=== PATIENT | female | born 1945 | race Caucasian/White ===

== ENCOUNTER 2017-06-12 14:22 | Emergency (ER) | payer MEDICARE, OTHER ==
--- NOTE | 2017-06-12 16:18 | RAD ---
LEFT RIBS 3 VIEWS CHEST 1 VIEW: Date: 06/12/17 HISTORY: Left chest wall pain. FINDINGS: No displaced rib fracture or pneumothorax are apparent. Cardiac silhouette and pulmonary vasculature are unremarkable. Mediastinum is midline with aortic calcification. There is no confluent air space consolidation or evidence of pneumothorax. IMPRESSION: 1. No active cardiopulmonary abnormalities are demonstrated. 2. Atherosclerosis. POS: [facility]
== END 2017-06-12 17:41 | disposition home or self-care (01) ==
LOC: ERS 14:22
DX: R07.81 Pleurodynia (principal); G30.9 Alzheimer's disease, unspecified; F02.80 Dementia in other diseases classified elsewhere, unspecified severity, without behavioral disturbance, psychotic disturbance, mood disturbance, and anxiety; I10 Essential (primary) hypertension; F32.9 Major depressive disorder, single episode, unspecified; Z79.899 Other long term (current) drug therapy
CPT/HCPCS: 93005

== ENCOUNTER 2018-01-16 19:10 | Inpatient (IN) | payer MEDICARE, OTHER ==
[2018-01-16 19:49] LABS: #Basophils 0.1 thou/uL (0.0-0.2); #Eosinphils 0.2 thou/uL (0.0-0.7); #Lymphocytes 1.4 thou/uL (1.20-3.40); #Monocytes 0.5 thou/uL (0.11-0.59); #Neutrophils 2.7 thou/uL (1.40-6.50); %Eosinophils 3.5 % (0.0-10.0); %Lymphocytes 29.3 % (21.0-51.0); %Monocytes 10.8 % (0.0-10.0); %Neutrophils 55.4 % (42.0-75.0); Hemoglobin 10.3 g/dL (12.0-16.0); Mean Corpuscular HGB CONC 33.9 g/dL (32.0-36.0); Mean Corpuscular Hemoglobin 30.1 pg (27.0-31.0); Mean Corpuscular Volume 88.8 fl (81.0-99.0); Mean Platelet Volume 6.6 fL (7.4-10.4); Platelet Count 167 thou/uL (130-400); RBC Distribution Width 12.3 % (11.5-14.5); Red Blood Cell (RBC) Count 3.43 mill/uL (4.20-5.40); White Blood Cell (WBC) Count 4.9 thou/uL (4.8-10.8)
[2018-01-16 20:02] LABS: ALT (SGPT) 8 U/L (8-55); AST (SGOT) 12 U/L (5-34); Albumin 3.3 g/dL (3.4-4.8); Alkaline Phosphatase 35 U/L (40-150); Anion Gap 11 mmol/L (10-20); BUN (Urea Nitrogen) 32 mg/dL (9.8-20.1); Bilirubin, Total 0.2 mg/dL (0.2-1.2); CK (CPK) 29 U/L (29-168); Calc. Creatinine Clearance 0 mL/min (70-130); Calcium 8.2 mg/dL (7.8-10.44); Carbon Dioxide 22 mmol/L (23-31); Chloride 110 mmol/L (98-107); Estimated GFR-MDRD 55; Glucose 101 mg/dL (83-110); Potassium 4.4 mmol/L (3.5-5.1); Protein, Total 5.3 g/dL (6.0-8.3); Sodium 139 mmol/L (136-145)
[2018-01-16 20:12] LABS: CKMB 0.5 ng/mL (0-6.6); Troponin I Less than 0.010 ng/mL (< 0.028)
--- NOTE | 2018-01-16 20:27 | RAD ---
AP VIEW OF THE CHEST: 01/16/18 INDICATION: Found slumped in chair for a few minutes while eating and lethargic and drowsy. COMPARISON: Comparisons are made with prior left rib series with chest radiograph dated 06/12/17. FINDINGS: The lungs are clear. No pleural effusion or pneumothorax is evident. Chronic osseous changes appear s imilar to the comparison. IMPRESSION: No acute cardiopulmonary abnormalities. POS: [facility]
[2018-01-16 20:36] LABS: Bilirubin Small (Negative); Blood, Urine Negative (Negative); Clarity CLEAR (Clear); Glucose, Urine (Dipstick) Negative (Negative); Leukocyte Negative (Negative); Nitrite Negative (Negative); Protein, Urine (Dipstick) Negative (Neg-Trace); Specific Gravity, Urine 1.027 (1.002-1.036)
--- NOTE | 2018-01-16 20:48 | CT ---
CT OF THE BRAIN WITHOUT CONTRAST: 01/16/18 INDICATION: Syncopal episode. COMPARISON: MRI of the brain dated 01/24/14. FINDINGS: Generalized cerebral and cerebellar atrophy is stable. no acute infarct, hemorrhage or hydrocephalus is present. There is a small air fluid level within the right major sphenoid air cell. Mastoid air cells are clear. IMPRESSION: 1. Air fluid levels in the right major sphenoid air cell may reflect mild sphenoid sinusitis. 2. No acute intracranial abnormality. POS: [facility]
[2018-01-16] MEDS ORDERED: Magnesium Sulfate 2 GM/100 ML BAG ONE (21:15)
[2018-01-16] MEDS ORDERED: Norepinephrine 8 MG/0.9% NS 250 ML ONE (22:46)
--- NOTE | 2018-01-16 23:02 | RAD ---
AP VIEW OF THE CHEST: 01/16/18 INDICATION: Central line placement. COMPARISON: Prior exam dated 01/16/18 at 7:33 p.m. IMPRESSION: There is a right IJ central venous catheter projecting in the region of the right atrium. Remainder o f the examination is unchanged. No pneumothorax is evident. POS: [facility]
[2018-01-17] MEDS: Sodium Chloride 0.9% 1,000 ML IV SCH ×4 (02:38→22:04)
[2018-01-17 02:45] VITALS: BMI 27.6
[2018-01-17] MEDS ORDERED: Prevnar 13-Val Conj/PF 0.5 ML SYRINGE IM ONE ×2 (03:45→09:00)
[2018-01-17] MEDS ORDERED: Divalproex Sodium DR 500 MG TAB PO SCH (11:30)
--- NOTE | 2018-01-17 11:58 | ULT ---
CAROTID ULTRASOUND: HISTORY: Syncope. COMPARISON: None. TECHNIQUE: Delgadillo scale, color flow, Doppler imaging, and spectral waveform analysis is performed. FINDINGS: The right carotid cannot be assessed due to the presence of an IJ catheter. Left carotid: Atherosclerosis involving the left carotid bifurcation of proximal internal carotid artery. Peak sys tolic velocity of the common carotid artery is 62 cm/s. Peak systolic velocity of the internal carot id is 69 cm/s. Systolic ICA to CCA ratio is 1.1. Antegrade flow in the left vertebral artery. IMPRESSION: No evidence of hemodynamically significant stenosis in the left carotid artery. Nonvisualization of the right carotid artery due to the presence of a right internal jugular central venous catheter. POS: [facility]
[2018-01-17 19:21] LABS: Troponin I Less than 0.010 ng/mL (< 0.028)
[2018-01-17] MEDS: Donepezil HCl 10 MG TAB PO SCH (21:09)
[2018-01-17] MEDS: Divalproex Sodium DR 500 MG TAB PO SCH (21:09)
--- NOTE | 2018-01-17 21:49 | HP ---
DATE OF ADMISSION: 01/16/2018 CHIEF COMPLAINT: Syncopal episode. HISTORY OF PRESENT ILLNESS: Ms. Ashby is a 72-year-old female with past history of dementi a and hypertension, who was found by longterm staff, passing out while eating dinner. The patien t notes that she does not remember anything. She has severe dementia. According to longterm sta ff, the patient passed out and became hypotensive at that time. She passed out for about 5-10 minute s, but the patient was still hypotensive and tachycardic. The EMS was called. EMS found the patient hypotensive and started on IV fluids. In the ER, the patient was still hypotensive, received IV flu id boluses 2 more liters and they felt the patient was not improving, so she was given Levophed for a few minutes then stopped and the blood pressure markedly improved after that. The patient did not h ave any evidence of infection, but she had evidence of elevated prolactin. She was suspected to have seizure episode, so she is being admitted for further evaluation and management. PAST MEDICAL HISTORY: 1. Dementia, severe. 2. Hypertension. 3. Urinary incontinence. 4. Bipolar disorder. 5. Unsteady gait. 6. Mood disorder. PAST SURGICAL HISTORY: Nothing significant. CURRENT MEDICATIONS: The patient is on Depakote 500 b.i.d., Aricept 10 mg daily, lisinopril 10 mg da jamey, Namenda 28 mg daily, oxybutynin chloride 10 mg daily, Seroquel 300 mg at bedtime, sertraline 100 mg at bedtime. ALLERGIES: No known drug allergies. FAMILY HISTORY: Nothing contributory. SOCIAL HISTORY: The patient is a resident of [facility]. No history of smoking. No hist ory of alcohol intake. REVIEW OF SYSTEMS: Cardiovascular: No chest pain. No shortness of breath. Respiratory: No fever or cough. Gastrointestinal: No nausea or vomiting. No abdominal pain. Genitourinary: No dysuria. Central nervous system: No headache, no dizziness. PHYSICAL EXAMINATION: GENERAL: The patient is alert, awake, not well oriented. VITAL SIGNS: Temperature 98, pulse 73, respirations 20, blood pressure 105/70. HEENT: Head is normocephalic, atraumatic. Pupils are equal and reactive to light. Nasopharynx is p ian and dry. Hard and soft palate, no lesions seen. SKIN: Skin turgor decreased. NECK: Supple. No JVD. LUNGS: Bilateral air entry with no rales, no rhonchi. CARDIAC: S1, S2, regular. ABDOMEN: Soft, no distention, no tenderness. Normal bowel sounds present. RECTAL: Deferred. CENTRAL NERVOUS SYSTEM: The patient is alert, awake, oriented x2. Motor system power 5/5 in all ext remities. Deep tendon reflexes 2+ bilaterally. Plantar downgoing. Sensory intact. LABORATORY AND X-RAY FINDINGS: CBC shows WBC 4.9, hemoglobin 10, hematocrit 30, platelets 167. Inez bolic panel: Sodium 139, potassium 4.4, chloride 110, CO2 of 22, BUN 32, creatinine 0.9, glucose 101 . CK-MB 0.5, troponin I less than 0.010. Prolactin level 73. Urinalysis negative. Valproic acid l evel 55. Chest x-ray, negative. CT of the brain, unremarkable. EKG shows sinus bradycardia with a heart rate of 54. No acute ST-T wave changes seen. ASSESSMENT: 1. Syncopal episode, rule out myocardial infarction, rule out cardiac arrhythmia. 2. Rule out seizure episode. 3. Hypotension. 4. Severe dementia. 5. Bipolar disorder. 6. Urinary incontinence. PLAN: 1. Vital signs q.4 hours. 2. Activity: As tolerated. 3. Allergies: No known drug allergies. 4. IV fluids: Normal saline at 80 mL per hour. 5. Continue on longterm medications. 6. Hold lisinopril. 7. Cultures. 8. Troponin I q.8 hours x2. 9. Carotid Doppler study. 10. Echocardiogram. 11. Neurology consult. 12. MRI of the brain.
[2018-01-17 21:59] LABS: Troponin I Less than 0.010 ng/mL (< 0.028)
--- NOTE | 2018-01-17 22:51 | CON ---
DATE OF CONSULTATION: 01/18/2018 REASON FOR CONSULTATION: Syncope. HISTORY OF PRESENT ILLNESS: Ms. Ashby is a 72-year-old female who has been concerned for e valuation of altered mental status, evaluation of syncope. History is obtained from patient's medica l chart as patient is unable to provide and there are no family members present at bedside. Apparent ly, patient is a shelter resident for her underlying psychiatrist condition as well as dementia. She was sitting down at the dinner table on yesterday and suddenly had a syncopal event during this time. She did not have any convulsions. There was no tongue biting, no loss of bladder control not ed. This episode lasted less than 1 minute without any postictal confusion. She was brought to the emergency room due to this episode. She has no prior history of seizure disorder. She currently den ies any headache, chest pain, palpitation, nausea, vomiting, abdominal pain. She has been on Depakot e for her bipolar disorder. PAST MEDICAL HISTORY: Significant for bipolar disorder, Alzheimer's disease, protein-calorie malnutr ition, hypertension. PAST SURGICAL HISTORY: Not significant. SOCIAL HISTORY: She does not smoke cigarettes, drink alcohol, or use of illicit drugs. FAMILY HISTORY: Noncontributory. CURRENT MEDICATIONS: Please review MAR. ALLERGIES: No known drug allergies. REVIEW OF SYSTEMS: As mentioned in the HPI, otherwise negative. PHYSICAL EXAMINATION: VITAL SIGNS: Blood pressure 138/93, pulse of 69, temperature of 97.8, respirations of 16, O2 sats of 99% on room air. GENERAL: Well-developed, well-nourished female in no apparent distress. RESPIRATORY: Jeanette r to auscultation bilaterally. CARDIOVASCULAR: Regular rate and rhythm. NEUROLOGIC: Mental status: Patient is awake, alert, and oriented to person only. Speech and langua ge: Fluent speech. Cranial nerves: Pupils are 3 mm and reactive. Visual guthrie are intact. Extra ocular muscles are intact. No nystagmus is noted. Face is symmetric. Tongue and uvula are midline. Motor exam showed normal tone and bulk with 5/5 strength in both upper and lower extremities. Senso ry: Sensation is intact and symmetric. Deep tendon reflexes: 2+ reflexes in both upper and lower e xtremities. Babinski: Plantar responses flexion bilaterally. Coordination intact to heimek-eirc-th nger and finger tapping bilaterally. LABORATORY DATA: Reviewed, which included CBC, CMP, urinalysis. Valproic acid level, which is signi ficant for hemoglobin of 10.3, hematocrit of 30.4. BUN of 32 and valproic acid level of 55, otherwis e unremarkable. IMAGING STUDIES: CT head without contrast was reviewed, which showed no acute intracranial abnormali ty. IMPRESSION: Syncope. Ms. Ashby is a pleasant 72-year-old female who presented with syncop al episode. Based on the description of the spell, this is less likely to be a seizure-related event . At this time, I would recommend obtaining MRI brain with and without contrast and EEG. Since the MRI machine is down, if she was staying in the hospital until a month ago, we will obtain MRI brain a nd EEG on Friday, otherwise, this can be done as an outpatient. She is already taking Depakote for h er mood disorder which will actually help with her seizures and thus I would not recommend starting o n any different antiepileptic medication at this time. Continue supportive care. Thank you for consultation.
[2018-01-18 04:57] LABS: #Eosinphils 0.2 thou/uL (0.0-0.7); #Lymphocytes 1.6 thou/uL (1.20-3.40); #Monocytes 0.4 thou/uL (0.11-0.59); #Neutrophils 2.4 thou/uL (1.40-6.50); %Basophils 0.6 % (0.0-1.0); %Eosinophils 5.2 % (0.0-10.0); %Lymphocytes 33.9 % (21.0-51.0); %Monocytes 8.2 % (0.0-10.0); Hemoglobin 9.9 g/dL (12.0-16.0); Mean Corpuscular HGB CONC 33.7 g/dL (32.0-36.0); Mean Corpuscular Hemoglobin 29.9 pg (27.0-31.0); Mean Corpuscular Volume 88.9 fl (81.0-99.0); Mean Platelet Volume 6.6 fL (7.4-10.4); Platelet Count 150 thou/uL (130-400); RBC Distribution Width 12.3 % (11.5-14.5); Red Blood Cell (RBC) Count 3.32 mill/uL (4.20-5.40); White Blood Cell (WBC) Count 4.7 thou/uL (4.8-10.8)
[2018-01-18 05:12] LABS: Anion Gap 7 mmol/L (10-20); BUN (Urea Nitrogen) 17 mg/dL (9.8-20.1); Calc. Creatinine Clearance 85 mL/min (70-130); Calcium 8.2 mg/dL (7.8-10.44); Carbon Dioxide 23 mmol/L (23-31); Chloride 113 mmol/L (98-107); Estimated GFR-MDRD 71; Glucose 82 mg/dL (83-110); Sodium 139 mmol/L (136-145)
[2018-01-18] MEDS: Divalproex Sodium DR 500 MG TAB PO SCH ×2 (09:26→20:31)
[2018-01-18] MEDS: Sodium Chloride 0.9% 1,000 ML IV SCH (10:48)
--- NOTE | 2018-01-18 14:17 | MRI ---
BRAIN MRI WITH AND WITHOUT CONTRAST: HISTORY: New-onset seizure. Confusion. COMPARISON: 01/24/14. TECHNIQUE: A brain MRI is performed with and without intravenous Gadolinium administration. Multisequential, mu ltiplanar imaging is performed. FINDINGS: Limited evaluation due to motion degradation. Age-appropriate atrophy. Cortical stack-white matter differentiation is preserved. Ventricles and sulci are patent and symmetric. No evidence of hydrocephalus. Symmetric signal intensity of the hippocampi. Chronic small-vessel ischemic changes of the white mat ter are noted. Calvarium has a normal marrow signal intensity. Midline brain parenchymal structures are unremarkabl e. No pathologic enhancement of the brain parenchyma. Central arterial flow voids are maintained. Absent restricted diffusion. No significant opacificati on of the sinuses or mastoid air cells. IMPRESSION: 1. Age-appropriate atrophy. 2. No restricted diffusion. No acute infarct. 3. No pathologic enhancement of the brain parenchyma. POS: [facility]
[2018-01-18] MEDS: Donepezil HCl 10 MG TAB PO SCH (20:30)
[2018-01-19] MEDS: Sodium Chloride 0.9% 1,000 ML IV SCH (05:50)
[2018-01-19 10:58] LABS: #Eosinphils 0.2 thou/uL (0.0-0.7); #Monocytes 0.5 thou/uL (0.11-0.59); #Neutrophils 3.6 thou/uL (1.40-6.50); %Basophils 0.8 % (0.0-1.0); %Eosinophils 3.4 % (0.0-10.0); %Lymphocytes 18.9 % (21.0-51.0); %Monocytes 9.2 % (0.0-10.0); %Neutrophils 67.6 % (42.0-75.0); Hemoglobin 10.9 g/dL (12.0-16.0); Mean Corpuscular HGB CONC 33.7 g/dL (32.0-36.0); Mean Corpuscular Hemoglobin 29.9 pg (27.0-31.0); Mean Corpuscular Volume 88.7 fl (81.0-99.0); Mean Platelet Volume 6.3 fL (7.4-10.4); Platelet Count 172 thou/uL (130-400); RBC Distribution Width 12.2 % (11.5-14.5); Red Blood Cell (RBC) Count 3.64 mill/uL (4.20-5.40); White Blood Cell (WBC) Count 5.3 thou/uL (4.8-10.8)
[2018-01-19] MEDS: Divalproex Sodium DR 500 MG TAB PO SCH ×2 (11:12→21:40)
[2018-01-19 11:23] LABS: Anion Gap 10 mmol/L (10-20); BUN (Urea Nitrogen) 17 mg/dL (9.8-20.1); Calc. Creatinine Clearance 80 mL/min (70-130); Calcium 8.7 mg/dL (7.8-10.44); Carbon Dioxide 26 mmol/L (23-31); Chloride 109 mmol/L (98-107); Estimated GFR-MDRD 68; Glucose 87 mg/dL (83-110); Potassium 4.5 mmol/L (3.5-5.1); Sodium 140 mmol/L (136-145)
--- NOTE | 2018-01-19 12:01 | ULT ---
BILATERAL CAROTID DUPLEX ULTRASOUND: DATE: 01/19/18 HISTORY: Syncope. TECHNIQUE: Delgadillo scale ultrasound with color flow and spectral Doppler imaging of the extracranial carotid artery systems performed bilaterally. FINDINGS: There is plaque formation on either side. The peak systolic velocity in the right ICA measures 68 cm/second with an end-diastolic velocity of 1 4 cm/second and a systolic ratio of 0.94. The peak systolic velocity in the left ICA measures 81 cm/second with an end-diastolic velocity of 20 cm/second and a systolic ratio of 0.76. Flow in both vertebral arteries remains antegrade. IMPRESSION: No evidence of hemodynamically significant stenosis. POS: [facility]
[2018-01-19 16:31] LABS: Iron 38 ug/dL (50-170); Iron Binding Capacity, Total 233 mcg/dL (265-497)
[2018-01-19] MEDS: Donepezil HCl 10 MG TAB PO SCH (21:40)
[2018-01-20] MEDS ORDERED: Lisinopril 5 MG TAB PO SCH (09:00)
[2018-01-20 09:03] VITALS: TEMP 97.7
[2018-01-20] MEDS: Divalproex Sodium DR 500 MG TAB PO SCH (09:33)
[2018-01-20 12:48] VITALS: BP 112/65
--- NOTE | 2018-01-21 13:16 | DIS ---
DATE OF ADMISSION: 01/17/2018 DATE OF DISCHARGE: 01/20/2018 ADMITTING DIAGNOSES: 1. Syncopal episode, rule out myocardial infarction, rule out cardiac arrhythmia. 2. Rule out seizure episode. 3. Hypotension. 4. Severe dementia. 5 Bipolar disorder. 6. Urinary incontinence. FINAL DIAGNOSES: 1. Syncopal episode, no evidence of acute myocardial infarction, no evidence of cardiac arrhythmia. 2. No evidence of seizure disorder. 3. Hypotension, resolved. 4. Severe dementia. 5. Bipolar disorder. 6. Urinary incontinence. BRIEF SUMMARY OF HOSPITAL COURSE: Ms. Ashby is a 72-year-old female admitted because of hypotension and syncopal episode. The patient passed out for about 5-10 minutes and she was tachycardic also. It was not clear whether she had any seizure episode. The patient was admitted to rule out cardiac arrhythmia. The patient was started on cardiac monitoring, though there was no evidence of cardiac arrhythmia. Carotid Doppler study was done and it revealed no evidence of any hemodynamically significant stenosis. Echocardiogram was done, showed normal LV ejection fraction of 60%. She also had an MRI of the brain done, which was negative. Consultation with Neurology. The patient was seen by Dr. Brasher. The patient had a syncopal episode, but did not show any evidence of seizures. MRI of brain was done, it was negative. EEG was also requested and it was reported as negative. The patient did not have anymore episodes of syncope. Her hypotension improved. So, in view of improvement, the patient was discharged. At the time of discharge, she was stable. PHYSICAL EXAMINATION: VITAL SIGNS: Stable. LUNGS: Clear. ABDOMEN: Soft, nontender. Bowel sounds present. DISCHARGE MEDICATIONS: Include Aricept 10 mg daily, Namenda XR 28 mg daily, sertraline 100 mg daily, Seroquel 300 mg daily, oxybutynin chloride 10 mg daily , Depakote 500 b.i.d., lisinopril 5 mg daily. FOLLOWUP: The patient will be followed up at sn[facility]. [facility]
--- NOTE | 2018-01-24 16:33 | EKG ---
Test Reason : SYNCOPE Blood Pressure : / mmHG Vent. Rate : 054 BPM Atrial Rate : 054 BPM P-R Int : 154 ms QRS Dur : 094 ms QT Int : 518 ms P-R-T Axes : 069 017 033 degrees QTc Int : 491 ms Sinus bradycardia Prolonged QT Abnormal ECG Confirmed by YAKOV CONNOLLY ([id number]), electronic news gathering editor MAHAD TAFOYA ([id number]) on 01/24/2018 4:33:15 PM Referred By: ALICIA CORBETT Confirmed By:YAKOV CONNOLLY
== END 2018-01-20 14:26 | DRG 312 ==
LOC: ERS 19:10 → 2NO 01-17 00:04
PROVIDERS: ADMIT Internal Medicine; ATTEND Internal Medicine
DX: R55 Syncope and collapse (principal); I10 Essential (primary) hypertension; F31.9 Bipolar disorder, unspecified; I95.9 Hypotension, unspecified; R32 Unspecified urinary incontinence; G30.9 Alzheimer's disease, unspecified; F02.80 Dementia in other diseases classified elsewhere, unspecified severity, without behavioral disturbance, psychotic disturbance, mood disturbance, and anxiety; Z79.899 Other long term (current) drug therapy
CPT/HCPCS: 36415; 36556; 51702; 70450; 70553; 71045; 80048; 80053; 80164; 81003; 82274; 82553; 82728; 83540; 83550; 83605; 84146; 84484; 85025; 87040; 87086; 90471; 90670; 93005; 93306; 93880; 94760; 95816; 95819; 96365; 96367; A4216; A4353; G0009; J3475

== ENCOUNTER 2018-02-13 19:17 | Emergency (ER) | payer MEDICARE | END 2018-02-13 21:55 | disposition home or self-care (01) | LOC: ERS 19:17 | DX: T76.21XA Adult sexual abuse, suspected, initial encounter (principal); G30.9 Alzheimer's disease, unspecified; F02.80 Dementia in other diseases classified elsewhere, unspecified severity, without behavioral disturbance, psychotic disturbance, mood disturbance, and anxiety; I10 Essential (primary) hypertension; F39 Unspecified mood [affective] disorder; F32.9 Major depressive disorder, single episode, unspecified; Z79.899 Other long term (current) drug therapy | CPT/HCPCS: 99284 ==

== ENCOUNTER 2018-05-01 23:01 | Inpatient (IN) | payer MEDICARE ==
[2018-05-02 00:12] LABS: #Eosinphils 0.3 thou/uL (0.0-0.7); #Lymphocytes 1.2 thou/uL (1.20-3.40); #Monocytes 0.6 thou/uL (0.11-0.59); #Neutrophils 5.2 thou/uL (1.40-6.50); %Basophils 0.7 % (0.0-1.0); %Eosinophils 3.6 % (0.0-10.0); %Lymphocytes 16.9 % (21.0-51.0); %Monocytes 8.1 % (0.0-10.0); %Neutrophils 70.7 % (42.0-75.0); Hemoglobin 10.7 g/dL (12.0-16.0); Mean Corpuscular HGB CONC 34.2 g/dL (32.0-36.0); Mean Corpuscular Hemoglobin 30.5 pg (27.0-31.0); Mean Corpuscular Volume 89.1 fL (78.0-98.0); Mean Platelet Volume 6.8 fL (7.4-10.4); Platelet Count 151 thou/uL (130-400); RBC Distribution Width 12.7 % (11.5-14.5); Red Blood Cell (RBC) Count 3.51 mill/uL (4.20-5.40); White Blood Cell (WBC) Count 7.3 thou/uL (4.8-10.8)
[2018-05-02 00:31] LABS: ALT (SGPT) Less than 7 U/L (8-55); AST (SGOT) 9 U/L (5-34); Albumin 3.4 g/dL (3.4-4.8); Alkaline Phosphatase 38 U/L (40-150); Anion Gap 11 mmol/L (10-20); BUN (Urea Nitrogen) 14 mg/dL (9.8-20.1); Bilirubin, Total 0.3 mg/dL (0.2-1.2); Calc. Creatinine Clearance 0 mL/min (70-130); Calcium 8.4 mg/dL (7.8-10.44); Carbon Dioxide 23 mmol/L (23-31); Chloride 112 mmol/L (98-107); Estimated GFR-MDRD 67; Globulin 1.9 g/dL (2.4-3.5); Glucose 109 mg/dL (83-110); Magnesium 1.8 mg/dL (1.6-2.6); Phosphorus 3.1 mg/dL (2.3-4.7); Potassium 3.6 mmol/L (3.5-5.1); Protein, Total 5.3 g/dL (6.0-8.3); Sodium 142 mmol/L (136-145)
[2018-05-02 00:35] LABS: CKMB 0.6 ng/mL (0-6.6); Troponin I Less than 0.010 ng/mL (< 0.028)
[2018-05-02 00:43] LABS: Bilirubin Negative (Negative); Blood, Urine Negative (Negative); Clarity CLOUDY (Clear); Glucose, Urine (Dipstick) Negative (Negative); Leukocyte Moderate (Negative); Nitrite Positive (Negative); Protein, Urine (Dipstick) 30 mg/dL (Neg-Trace); Specific Gravity, Urine 1.016 (1.002-1.036); pH, Urine 6.5 (5.0-9.0)
[2018-05-02 00:46] LABS: Bacteria/HPF 4+ HPF (None Seen); Squamous Epithelial 0-3 HPF (0-3); WBC/HPF 21-50 HPF (0-3)
[2018-05-02 01:13] LABS: Pathc Cast-AUWi Flag 3.48 (0-2.49)
[2018-05-02 01:24] LABS: RBC/HPF 0-3 HPF (0-3)
[2018-05-02] MEDS ORDERED: Piperacillin/Tazobactam 4.5 GM VIAL ONE (01:45)
[2018-05-02] MEDS: Sodium Chloride 0.9% 1,000 ML IV SCH ×4 (03:10→15:04)
[2018-05-02 04:33] LABS: Troponin I Less than 0.010 ng/mL (< 0.028)
--- NOTE | 2018-05-02 07:30 | CT ---
NONCONTRAST CT HEAD: DATE: 05/02/18. HISTORY: Syncope and collapse. COMPARISON: 01/16/18. FINDINGS: There is no evidence of an acute infarction, hemorrhage, mass effect, or midline shift. Cerebral and cerebellar volume loss is again present. The ventricular system is normal in size, shape, and posit ion for the degree of sulcal atrophy. There is minimal mucosal thickening in the right maxillary antrum with a small air fluid level in the right sphenoid sinus. The mastoid air cells are clear. Calvarial structures are intact without daniel dence of a calvarial fracture. IMPRESSION: 1. No acute intracranial abnormality is demonstrated. 2. Cerebral volume loss. 3. Air fluid level in the right sphenoid sinus which can be seen with acute sinusitis. Minimal muco kylah thickening is seen in the right maxillary antrum. POS: [facility]
--- NOTE | 2018-05-02 07:33 | CT ---
NONCONTRAST CT CERVICAL SPINE: DATE: 05/02/18. HISTORY: Syncope with collapse. TECHNIQUE: Contiguous axial CT images are obtained through the cervical spine from the skull base to the T1-2 le aamir. Sagittal and coronal reformatted images are provided. FINDINGS: There are prominent degenerative changes involving the lateral masses of C1 and C2 much greater on th e left. Multilevel facet hypertrophic changes are noted. There is at least partial fusion of the C4 and C5 vertebral bodies. The vertebral body heights are within normal limits and no fracture or subluxation is seen. There is severe right-sided neural foraminal narrowing at the C4-5 level related to prominent facet h ypertrophic changes and uncinate process hypertrophy. There is also a suggestion of severe bilateral neural foraminal narrowing at the C5-6 level. The prevertebral soft tissues are within normal limits. Vascular calcifications are seen in the carotid arteries. Limited visualized lung apices are clear. IMPRESSION: Multilevel degenerative changes in the cervical spine, but no fracture or subluxation is identified. POS: [facility]
[2018-05-02 08:33] LABS: Troponin I Less than 0.010 ng/mL (< 0.028)
--- NOTE | 2018-05-02 09:54 | RAD ---
PORTABLE CHEST: HISTORY: Syncope. FINDINGS: Lung guthrie are clear. Heart and mediastinum unremarkable. IMPRESSION: No acute process. POS: [facility]
[2018-05-02] MEDS: cefTRIAXone\\ROCEPHIN 2 GM in Sodium Chloride 0.9% 100 ML IVPB SCH (10:13)
[2018-05-02] MEDS: Divalproex Sodium DR 500 MG TAB PO SCH ×2 (10:14→20:45)
[2018-05-02] MEDS: Oxybutynin ER 5 MG TAB PO SCH (10:15)
--- NOTE | 2018-05-02 19:49 | HP ---
DATE OF ADMISSION: 05/02/2018 CHIEF COMPLAINT: Syncopal episode, hypotension. HISTORY OF PRESENT ILLNESS: Ms. Ashby is a 73-year-old female with past medical history of dementia, bipolar disorder, who was brought in because she passed out in the bathroom. The patient did not complain of any chest pain , no fever, no nausea or vomiting. She has been doing well until that time. The patient was found to be hypotensive as well. EMS was called. EMS found the patient to be hypotensive, brought to the emergency room after she was started on fluids. In the ER, the patient was still hypotensive with systolic blood pressure 87 and diastolic was 51. The patient received IV fluid bolus 1 liter. As she was found to have urinary tract infection, she was given Cipro, Zosyn, and vancomycin and her blood pressure improved with IV fluids. She is admitted for further evaluation and management. The patient was also found to be hypothermic, temperature 94.4. In the ER, she was given warm normal saline with temperature improved after that. PAST MEDICAL HISTORY: 1. Dementia. 2. Bipolar disorder. 3. Hypotension. 4. Unsteady gait. 5. Mood disorder. 6. Urinary incontinence. PAST SURGICAL HISTORY: Nothing significant. CURRENT MEDICATIONS: Patient is on Depakote 500 mg b.i.d., Namenda XR 28 mg daily, oxybutynin chloride 10 mg daily, Seroquel 300 mg daily, Zoloft 100 mg daily, Aricept 10 mg daily. ALLERGIES: No known drug allergies. FAMILY HISTORY: Nothing of interest. SOCIAL HISTORY: Patient is a resident of [facility]. No history of smoking. No history of alcohol. REVIEW OF SYSTEMS: Unable to be obtained. PHYSICAL EXAMINATION: GENERAL: The patient is awake, but not oriented. VITAL SIGNS: Initial blood pressure was 94, now 97; pulse 68, respiratory rate 20, and blood pressure 106/60. HEENT: Head is normocephalic, atraumatic. Pupils equal and reactive to light. Nasopharynx is pale and dry. Hard and soft palate, no lesions seen. SKIN: Turgor is decreased. NECK: Supple. No JVD. LUNGS: Bilateral air entry present, no rales, no rhonchi. CARDIAC: S1 and S2, regular. ABDOMEN: Soft, no distention, no tenderness. No abnormal bowel sounds. RECTAL EXAM: Deferred. NEUROLOGIC: The patient is alert, awake, not oriented. Motor system, power 4/ 5 in all extremities. Deep tendon reflexes 2+ bilaterally. Plantar downgoing. Sensory intact. LABORATORY AND X-RAY FINDINGS: CBC shows WBC 7.3, hemoglobin 10.7, hematocrit 31, and platelets 151. Metabolic panel: Sodium 142, potassium 3.6, chloride 112, CO2 of 23, BUN 14, creatinine 0.9, and glucose 109. CK-MB 0.6, troponin less than 0.010. Urinalysis; wbc's TNTC, bacteria 4+, leukocyte esterase moderate, nitrate positive. Chest x-ray negative. EKG shows normal sinus rhythm, no acute ST-T changes seen. CT of the brain, no acute intracranial abnormality present. Cerebral volume loss seen. CT of the cervical spine showed no fracture or subluxation, showed DJD changes. ASSESSMENT: 1. Urinary tract infection, rule out sepsis. 2. Hypotension. 3. Syncope, blacked out a lot. 4. Cardiac arrhythmia, rule out myocardial infarction. 5. Dementia. 6. Bipolar disorder. 7. Urinary incontinence. 8. Hypothermia. PLAN: 1. Vital signs q.4 hours. 2. Activity: As tolerated. 3. Allergies: NKDA. 4. Diet: Regular. 5. IV fluids normal saline 100 mL per hour. 6. Continue senior living medication. 7. Rocephin 2 grams IV piggyback daily 8. We will follow urine cultures. MTDD
[2018-05-02] MEDS: Donepezil HCl 10 MG TAB PO SCH (20:45)
[2018-05-03] MEDS: Sodium Chloride 0.9% 1,000 ML IV SCH (04:03)
[2018-05-03 04:56] LABS: #Eosinphils 0.3 thou/uL (0.0-0.7); #Lymphocytes 1.2 thou/uL (1.20-3.40); #Monocytes 0.3 thou/uL (0.11-0.59); #Neutrophils 2.2 thou/uL (1.40-6.50); %Basophils 0.7 % (0.0-1.0); %Eosinophils 8.4 % (0.0-10.0); %Lymphocytes 29.6 % (21.0-51.0); %Monocytes 6.3 % (0.0-10.0); Hemoglobin 9.6 g/dL (12.0-16.0); Mean Corpuscular HGB CONC 34.5 g/dL (32.0-36.0); Mean Corpuscular Hemoglobin 30.6 pg (27.0-31.0); Mean Corpuscular Volume 88.9 fL (78.0-98.0); Mean Platelet Volume 6.4 fL (7.4-10.4); Platelet Count 143 thou/uL (130-400); RBC Distribution Width 12.8 % (11.5-14.5); Red Blood Cell (RBC) Count 3.13 mill/uL (4.20-5.40)
[2018-05-03 05:03] LABS: Anion Gap 7 mmol/L (10-20); BUN (Urea Nitrogen) 9 mg/dL (9.8-20.1); Calc. Creatinine Clearance 81 mL/min (70-130); Carbon Dioxide 23 mmol/L (23-31); Chloride 115 mmol/L (98-107); Estimated GFR-MDRD 76; Glucose 88 mg/dL (83-110); Potassium 3.4 mmol/L (3.5-5.1); Sodium 142 mmol/L (136-145)
[2018-05-03] MEDS ORDERED: Prevnar 13-Val Conj/PF 0.5 ML SYRINGE IM ONE (09:00)
[2018-05-03] MEDS: cefTRIAXone\\ROCEPHIN 2 GM in Sodium Chloride 0.9% 100 ML IVPB SCH (09:37)
[2018-05-03] MEDS: Oxybutynin ER 5 MG TAB PO SCH (09:38)
[2018-05-03] MEDS: Divalproex Sodium DR 500 MG TAB PO SCH ×2 (09:38→20:31)
[2018-05-03] MEDS: Dextrose 5 %-0.45 % NaCl 1,000 ML IV SCH (12:31)
[2018-05-03] MEDS: Potassium Chloride 20 MEQ TAB PO SCH ×2 (12:31→16:52)
[2018-05-03] MEDS: Donepezil HCl 10 MG TAB PO SCH (20:31)
[2018-05-04] MEDS: Dextrose 5 %-0.45 % NaCl 1,000 ML IV SCH (04:12)
[2018-05-04] MEDS: cefTRIAXone\\ROCEPHIN 2 GM in Sodium Chloride 0.9% 100 ML IVPB SCH (08:06)
[2018-05-04] MEDS: Oxybutynin ER 5 MG TAB PO SCH (08:07)
[2018-05-04] MEDS: Divalproex Sodium DR 500 MG TAB PO SCH ×2 (09:35→20:35)
[2018-05-04] MEDS: Donepezil HCl 10 MG TAB PO SCH (20:35)
[2018-05-05 05:17] LABS: #Eosinphils 0.4 thou/uL (0.0-0.7); #Lymphocytes 1.3 thou/uL (1.20-3.40); #Monocytes 0.4 thou/uL (0.11-0.59); #Neutrophils 2.6 thou/uL (1.40-6.50); %Basophils 0.8 % (0.0-1.0); %Eosinophils 8.6 % (0.0-10.0); %Lymphocytes 27.2 % (21.0-51.0); %Monocytes 9.2 % (0.0-10.0); %Neutrophils 54.2 % (42.0-75.0); Hemoglobin 10.7 g/dL (12.0-16.0); Mean Corpuscular HGB CONC 34.5 g/dL (32.0-36.0); Mean Corpuscular Hemoglobin 30.1 pg (27.0-31.0); Mean Corpuscular Volume 87.3 fL (78.0-98.0); Mean Platelet Volume 7.5 fL (7.4-10.4); Platelet Count 159 thou/uL (130-400); RBC Distribution Width 12.9 % (11.5-14.5); Red Blood Cell (RBC) Count 3.55 mill/uL (4.20-5.40); White Blood Cell (WBC) Count 4.8 thou/uL (4.8-10.8)
[2018-05-05 05:32] LABS: Anion Gap 14 mmol/L (10-20); BUN (Urea Nitrogen) 7 mg/dL (9.8-20.1); Calc. Creatinine Clearance 77 mL/min (70-130); Calcium 8.8 mg/dL (7.8-10.44); Carbon Dioxide 22 mmol/L (23-31); Chloride 108 mmol/L (98-107); Estimated GFR-MDRD 71; Glucose 86 mg/dL (83-110); Potassium 3.5 mmol/L (3.5-5.1); Sodium 140 mmol/L (136-145)
[2018-05-05] MEDS: Oxybutynin ER 5 MG TAB PO SCH (08:11)
[2018-05-05] MEDS: cefTRIAXone\\ROCEPHIN 2 GM in Sodium Chloride 0.9% 100 ML IVPB SCH (08:12)
[2018-05-05] MEDS: Divalproex Sodium DR 500 MG TAB PO SCH ×2 (08:50→20:16)
[2018-05-05] MEDS: Donepezil HCl 10 MG TAB PO SCH (20:15)
[2018-05-06] MEDS: cefTRIAXone\\ROCEPHIN 2 GM in Sodium Chloride 0.9% 100 ML IVPB SCH (09:05)
[2018-05-06] MEDS: Divalproex Sodium DR 500 MG TAB PO SCH ×2 (09:05→20:07)
[2018-05-06] MEDS: Oxybutynin ER 5 MG TAB PO SCH (09:11)
[2018-05-06] MEDS: Donepezil HCl 10 MG TAB PO SCH (20:07)
[2018-05-07] MEDS: Divalproex Sodium DR 500 MG TAB PO SCH (08:41)
[2018-05-07] MEDS: Oxybutynin ER 5 MG TAB PO SCH (08:43)
--- NOTE | 2018-05-07 13:27 | EKG ---
Test Reason : SYNCOPE Blood Pressure : / mmHG Vent. Rate : 070 BPM Atrial Rate : 070 BPM P-R Int : 144 ms QRS Dur : 082 ms QT Int : 452 ms P-R-T Axes : 055 040 033 degrees QTc Int : 488 ms Normal sinus rhythm Nonspecific T wave abnormality Prolonged QT No STEMI Abnormal ECG Confirmed by ALICIA Vásquez, PASHA ([id number]), make up editor CANDE WADE ([id number]) on 05/07/2018 1:26:39 PM Referred By: Confirmed By:PASHA VARGAS M.D.
[2018-05-07 14:02] VITALS: BP 106/66; TEMP 98.5
--- NOTE | 2018-05-08 15:06 | DIS ---
DATE OF ADMISSION: 05/02/2018 DATE OF DISCHARGE: 05/07/2018 ADMITTING DIAGNOSES: 1. Urinary tract infection, rule out sepsis. 2. Hypotension. 3. Syncope, blacked out. 4. Cardiac arrhythmia, rule out myocardial infarction. 5. Dementia. 6. Bipolar disorder. 7. Urinary incontinence. 8. Hypothermia. FINAL DIAGNOSES: 1. Urinary tract infection, no evidence of sepsis. 2. Hypothermia, corrected. 3. Hypotension, improved. 4. Syncope. No evidence of acute myocardial infarction. 5. Dementia. 6. Bipolar disorder. BRIEF SUMMARY OF HOSPITAL COURSE: Ms. Ashby is a 73-year-old female admitted because of sy ncopal episode and hypotension. The patient was found to have urinary tract infection. A urine cult ure was done and revealed growth of Klebsiella pneumonia secondary to her Levaquin and Rocephin. The patient continued on IV antibiotics and blood culture showed no growth in 5 days. The patient's men tation improved. She became more alert, awake. Her hypotension improved and she is tolerating diet very well. Her Risperdal medication was stopped, because she was very sleepy. After it was stopped, the patient became more alert, awake. In view of improvement, the patient was discharged. At the t vida of discharge, she was stable. Her vital signs were stable. Lungs were clear. Heart sounds regu lar. Abdomen is soft, nontender. Bowel sounds present. DISCHARGE MEDICATIONS: Include Aricept 10 mg daily, Namenda 28 mg daily, sertraline 100 mg at bedtim e, oxybutynin chloride 10 mg daily, Depakote 500 b.i.d., lisinopril 5 mg daily, levofloxacin 750 mirna y for 5 days. FOLLOWUP: The patient will be followed up in 2 weeks.
== END 2018-05-07 13:27 | DRG 689 ==
LOC: ERS 23:01 → IMCU/EMU 05-02 02:19 → T4-A 05-03 15:02
PROVIDERS: ADMIT Internal Medicine; ATTEND Internal Medicine
DX: N39.0 Urinary tract infection, site not specified (principal); G93.49 Other encephalopathy; T68.XXXA Hypothermia, initial encounter; I95.9 Hypotension, unspecified; R55 Syncope and collapse; B96.1 Klebsiella pneumoniae [K. pneumoniae] as the cause of diseases classified elsewhere; Z91.81 History of falling; G30.9 Alzheimer's disease, unspecified; F02.80 Dementia in other diseases classified elsewhere, unspecified severity, without behavioral disturbance, psychotic disturbance, mood disturbance, and anxiety; F32.9 Major depressive disorder, single episode, unspecified; I49.9 Cardiac arrhythmia, unspecified
CPT/HCPCS: 36415; 51701; 70450; 71045; 72125; 80048; 80053; 81003; 81015; 82553; 83605; 83735; 83880; 84100; 84484; 85025; 87040; 87077; 87086; 87186; 93005; 94760; 96361; 96365; 96367; A4216; A4353; J0696; J1956; J2543; J3370; J7050

== ENCOUNTER 2018-05-20 13:52 | Emergency (ER) | payer MEDICARE ==
--- NOTE | 2018-05-20 14:57 | RAD ---
CHEST ONE VIEW: HISTORY: Aspiration. COMPARISON: 05/01/2018 FINDINGS: Slight elongation of the aorta. Atherosclerosis of the aortic knob. Normal cardiac silhouette. The pulmonary vessels and hilum are normal. Chronic changes without consolidation or mass. No pneumoth orax or osseous abnormalities. IMPRESSION: No acute cardiopulmonary process. POS: [facility]
== END 2018-05-20 14:33 | disposition home or self-care (01) ==
LOC: ERS 13:52
DX: R13.10 Dysphagia, unspecified (principal); G30.9 Alzheimer's disease, unspecified; F02.80 Dementia in other diseases classified elsewhere, unspecified severity, without behavioral disturbance, psychotic disturbance, mood disturbance, and anxiety; I10 Essential (primary) hypertension; F31.9 Bipolar disorder, unspecified; Z79.899 Other long term (current) drug therapy
CPT/HCPCS: 71045

== ENCOUNTER 2018-11-25 11:50 | Emergency (ER) | payer MEDICARE, MEDICAID ==
--- NOTE | 2018-11-25 12:24 | CT ---
HEAD CT WITHOUT CONTRAST: Date: 11/25/18 COMPARISON: 05/02/18. HISTORY: [facility] patient, fell from bed. Unwitnessed fall. Post-traumatic pain. Nosebleed. FINDINGS: No parenchymal hemorrhage. No extra-axial hematoma. No midline shift. Basilar cisterns are patent. Ag e-appropriate atrophy. Cortical stack-white matter differentiation preserved. No evidence of hydroceph alus. Adequate aeration of the mastoid air cells and visualized paranasal sinuses. Intact calvarium. There is soft tissue swelling at the level of the nose, along with bilateral nasal bone fractures. Ri ght nasal bone is deviated and displaced. IMPRESSION: 1. Nasal bone fracture. 2. No intracranial post-traumatic sequelae. POS: [facility]
[2018-11-25] MEDS ORDERED: Oxymetazoline HCl 0.05% ( 15 ML ) ONE (12:58)
== END 2018-11-25 15:29 | disposition home or self-care (01) ==
LOC: ERS 11:50
DX: S09.90XA Unspecified injury of head, initial encounter (principal); R04.0 Epistaxis; I10 Essential (primary) hypertension; F39 Unspecified mood [affective] disorder; F03.90 Unspecified dementia, unspecified severity, without behavioral disturbance, psychotic disturbance, mood disturbance, and anxiety; Z79.899 Other long term (current) drug therapy; G30.9 Alzheimer's disease, unspecified; F02.80 Dementia in other diseases classified elsewhere, unspecified severity, without behavioral disturbance, psychotic disturbance, mood disturbance, and anxiety; W19.XXXA Unspecified fall, initial encounter
CPT/HCPCS: 70450

== ENCOUNTER 2020-05-01 18:23 | Inpatient (IN) | payer MEDICARE, MEDICAID, OTHER ==
[~2020-05-01 18:23] MED LIST: Iopamidol-370 76% 500 ML 1 ML ONE
[2020-05-01 19:02] LABS: #Eosinphils 0.2 thou/uL (0.0-0.7); #Lymphocytes 0.5 thou/uL (1.20-3.40); #Monocytes 0.4 thou/uL (0.11-0.59); #Neutrophils 5.9 thou/uL (1.40-6.50); %Basophils 0.2 % (0.0-1.0); %Eosinophils 2.8 % (0.0-10.0); %Lymphocytes 6.8 % (21.0-51.0); %Monocytes 6.1 % (0.0-10.0); %Neutrophils 84.1 % (42.0-75.0); Hemoglobin 11.7 g/dL (12.0-16.0); Mean Corpuscular HGB CONC 33.5 g/dL (32.0-36.0); Mean Corpuscular Hemoglobin 30.8 pg (27.0-31.0); Mean Corpuscular Volume 91.8 fL (78.0-98.0); Mean Platelet Volume 7.9 fL (7.4-10.4); Platelet Count 129 thou/uL (130-400); RBC Distribution Width 11.9 % (11.5-14.5)
[2020-05-01] MEDS ORDERED: cefTRIAXone\\ROCEPHIN 1 GM VIAL ONE (19:06)
--- NOTE | 2020-05-01 19:06 | RAD ---
EXAM: Single view of the chest HISTORY: Hypotension COMPARISON: 05/20/2018 FINDINGS: Single view of the chest shows a normal sized cardiomediastinal silhouette. There is no daniel dence of consolidation, mass, or pleural effusion. Degenerative changes are seen in the spine. IMPRESSION: No evidence of acute cardiopulmonary disease
[2020-05-01 19:24] LABS: ALT (SGPT) Less than 7 U/L (8-55); AST (SGOT) 12 U/L (5-34); Alkaline Phosphatase 46 U/L (40-110); Anion Gap 15 mmol/L (10-20); BUN (Urea Nitrogen) 16 mg/dL (9.8-20.1); Bilirubin, Total 0.6 mg/dL (0.2-1.2); Calc. Creatinine Clearance 0 mL/min (70-130); Calcium 7.8 mg/dL (7.8-10.44); Carbon Dioxide 18 mmol/L (23-31); Chloride 106 mmol/L (98-107); Estimated GFR-MDRD 76; Globulin 2.4 g/dL (2.4-3.5); Glucose 138 mg/dL (83-110); Potassium 3.8 mmol/L (3.5-5.1); Protein, Total 5.4 g/dL (6.0-8.3); Sodium 135 mmol/L (136-145)
[2020-05-01 19:24] LABS: Bacteria/HPF None Seen HPF (None Seen); Bilirubin Negative (Negative); Blood, Urine Negative (Negative); Clarity Clear (Clear); Glucose, Urine (Dipstick) Normal (Negative); Ketone, Urine Negative (Negative); Leukocyte 25 Leu/uL (Negative); Mucous/LPF 1+ LPF (<2+); Nitrite Negative (Negative); Protein, Urine (Dipstick) 10 mg/dL (Neg-Trace); RBC/HPF 0-3 HPF (0-3); Specific Gravity, Urine 1.024 (1.002-1.036); Squamous Epithelial 0-3 HPF (0-3); WBC/HPF 0-3 HPF (0-3)
[2020-05-01] MEDS ORDERED: Norepinephrine 8 MG/0.9% NS 250 ML ONE (19:41)
[2020-05-01] MEDS ORDERED: Vasopressin 20 UNIT, Admixture Fee 1 EACH in Sodium Chloride 0.9% 50 ML IV SCH (20:45)
--- NOTE | 2020-05-01 20:47 | RAD ---
EXAM: Single view of the chest HISTORY: Central line placement COMPARISON: 05/01/2020 at 6:47 PM FINDINGS: Single view of the chest shows a normal sized cardiomediastinal silhouette. A left-sided c entral venous catheter seen with its tip in the superior vena cava. No pneumothorax is seen. There is no evidence of consolidation, mass, or pleural effusion. No acute osseous abnormality. IMPRESSION: Status post central line placement without evidence of complication.
[2020-05-01] MEDS ORDERED: Vancomycin 1.5 GRAM/300 ML BAG 1.5 GM in Premix Bag 1 BAG IVPB SCH (21:00)
[2020-05-01] MEDS ORDERED: Acetaminophen 650 MG Suppository PR PRN (21:13)
[2020-05-01] MEDS ORDERED: Ondansetron PF 4 MG/2 ML Vial IVP PRN (21:13)
[2020-05-01] MEDS ORDERED: Bisacodyl 10 MG SUPP PR PRN (21:13)
[2020-05-01] MEDS ORDERED: Ondansetron ODT 4 MG TAB PO PRN (21:13)
[2020-05-01] MEDS ORDERED: Senokot S 8.6-50 MG TAB PO PRN (21:13)
[2020-05-01] MEDS ORDERED: Acetaminophen 325 MG TAB PO PRN (21:13)
--- NOTE | 2020-05-01 21:13 | PDOC.FPRHP ---
- History of Present Illness Chief Complaint: AMS History of Present Illness: Patient is a 75 year old female with a history of Alzheimer's dementia, HLD, HTN , MDD and manic mood disorder per chart review presents to the ED via EMS from [facility] with reports of decreased mental status. Per the [place], the patient's baseline is A&Ox1 to self but she was A&Ox0 during the day today. Reported fever of 101.9F. The patient was recently diagnosed with a UTI on characterized by UA with + nitrates, large leuk benoit, TNTC WBC, RBC, rare bacteria and budding yeast. She was placed on cipro and diflucan that was stopped on 04/24. Macrobid was then given for 7 days with completion yesterday. EMS reported systolic BP in 80s upon arrival to [place]. NS 800mL and Tylenol was administered en route. Per the patient's son, he has been unable to visit his mother since 07/27 due to flu and COVID restrictions. He says the patient was incoherent during his last conversation with her and notes that he was told by [place] that she keeps to herself and roams the halls. ED Course: In the ED, systolic BP ranged 90s-100s with MAP in low 60s. 2.5L of NS total was administered. WBC 7. Bicarb 18. LA 3.5. Anion Gap 13.5. UA + for uric acid and leuk benoit. CXR showed nothing acute. Central line placed. Ceftriazone, levaquin and vanc administered. Levophed begun with resulting increased in systolic BP to 110s-130s. Patient's mentation improved to speaking one word responses. - Allergies/Adverse Reactions Allergies Allergy/AdvReac Type Severity Reaction Status Date / Time No Known Drug Allergies Allergy Verified 05/01/20 23:19 - Home Medications Medication Instructions Recorded Confirmed Type Divalproex Sodium DR [Depakote] 250 mg PO ASDIR 01/17/18 05/01/20 History Donepezil HCl [Aricept] 10 mg PO HS 01/17/18 05/01/20 History Memantine HCl [Namenda XR] 10 mg PO BID 01/17/18 05/01/20 History Oxybutynin Chloride [Oxybutynin 5 mg PO DAILY 01/17/18 05/01/20 History Chloride ER] Atorvastatin Calcium [Lipitor] 80 mg PO HS 05/01/20 05/01/20 History Divalproex Sodium [Depakote 500 mg PO ASDIR 05/01/20 05/01/20 History Sprinkle] Lisinopril 5 tab PO DAILY 05/01/20 05/01/20 History Loperamide HCl [Imodium A-D] 2 mg PO QID PRN 05/01/20 05/01/20 History - History PMHx: dementia, HLD, HTN, MDD and manic mood disorder per chart review PSHx: Unknown FHx: Unknown Social: Lives at [facility]. Previous use of tobacco products, ETOH and drugs unknown. - Review of Systems ROS unobtainable: due to mental status - Vital signs BP: [116/76] HR: [76] RR: [21] Tmax: [97.6] Pox: [100]% on [RA] Wt: [80.20kg] - Physical Exam Constitutional: NAD -Constitutional: Awake. Alert. HEENT: normocephalic and atraumatic Neck: supple, trachea midline Chest: no lesions Heart: RRR, normal S1/S2 -Heart: 3+ pitting edema to left ankle and foot. No edema to remainder of left lower extremity as well as right lower extremity. Lungs: CTAB, no respiratory distress Abdomen: soft, bowel sounds present, no masses/distention -Musculoskeletal: Left arm difficult to move due to contraction. Minimal movement of RUE, RLE, LLE. -Neurological: A&Ox0. Intermittently answers questions with one word. GCS 13 (spontaneous eye response, inappropriate words, obeys commands). Skin: capillary refill <2 seconds, no jaundice -Heme/Lymphatic: Ecchymosis to right medial knee. FMR H&P: Results - Labs Result Diagrams: 05/02/20 03:07 05/01/20 18:52 Lab results: WBC 7.0 thou/uL (4.8-10.8) 05/01/20 18:52 Hgb 11.7 g/dL (12.0-16.0) L 05/01/20 18:52 Hct 34.9 % (36.0-47.0) L 05/01/20 18:52 MCV 91.8 fL (78.0-98.0) 05/01/20 18:52 Plt Count 129 thou/uL (130-400) L 05/01/20 18:52 Neutrophils % 84.1 % (42.0-75.0) H 05/01/20 18:52 Sodium 135 mmol/L (136-145) L 05/01/20 18:52 Potassium 3.8 mmol/L (3.5-5.1) 05/01/20 18:52 Chloride 106 mmol/L (98-107) 05/01/20 18:52 Carbon Dioxide 18 mmol/L (23-31) L 05/01/20 18:52 BUN 16 mg/dL (9.8-20.1) 05/01/20 18:52 Creatinine 0.74 mg/dL (0.6-1.1) 05/01/20 18:52 Glucose 138 mg/dL (83-110) H 05/01/20 18:52 Lactic Acid 3.5 mmol/L (0.5-2.2) H 05/01/20 18:52 Calcium 7.8 mg/dL (7.8-10.44) 05/01/20 18:52 Total Bilirubin 0.6 mg/dL (0.2-1.2) 05/01/20 18:52 AST 12 U/L (5-34) 05/01/20 18:52 ALT Less than 7 U/L (8-55) L 05/01/20 18:52 Alkaline Phosphatase 46 U/L (40-110) 05/01/20 18:52 Serum Total Protein 5.4 g/dL (6.0-8.3) L 05/01/20 18:52 Albumin 3.0 g/dL (3.4-4.8) L 05/01/20 18:52 Urine Ketones Negative mg/dL (Negative) 05/01/20 19:07 Urine Blood Negative (Negative) 05/01/20 19:07 Urine Nitrite Negative (Negative) 05/01/20 19:07 Ur Leukocyte Esterase 25 Joyce/uL (Negative) A 05/01/20 19:07 Urine RBC 0-3 HPF (0-3) 05/01/20 19:07 Urine WBC 0-3 HPF (0-3) 05/01/20 19:07 Ur Squamous Epith Cells 0-3 HPF (0-3) 05/01/20 19:07 Urine Bacteria None Seen HPF (None Seen) 05/01/20 19:07 - EKG Interpretation EKG: HR 92, NSR - Radiology Interpretation Chest x-ray Status: report reviewed by me Additional comment: No acute cardiopulmonary process CT scan - chest Status: report reviewed by me Additional comment: Tiny right pleural effusion with atelectasis. No acute process noted. CT scan - abdomen Status: report reviewed by me Additional comment: Diverticulosis. HH. Bilateral inguinal hernias. Moderate stool in rectal vault. No acute process noted. FMR H&P: A/P - Plan Shock, possibly cardiogenic vs. adrenal crisis in nature Evidence of shock given hypotension and tachycardia. Patient meets SIRS critera (hypotension, elevated lactate) however does not meet sepsis criteria given lack of infectious source identified or probable. Reported febrile at [place], afebrile since arrival. CXR, CT Brain, CT Chest and CT A/P showed no acute processes. UA showed leuk benoit but negative for bacteria and nitrates. Hypovolemic shock due to decreased PO intake is also a possibility, although less likely given physical exam and lack of reported PO change by by [place]. Causes of shock will be further investigated. MAP currently > 65. -Admit to ICU -Trop with reflex CKMB, BNP, CPK -Cortisol level -Procal level -Morning BMP, CBC -Continue levophed drip and titrate down as tolerated -LR at 120 for maintanence fluids -Continue vanc and levaquin, pending blood and urine culture results -NPO until swallow study completed -Strict I&Os Lactic acidosis 2/2 shock Anion Gap 13.5. Lactic acid 3.5. -Repeat lactic acid -Monitor morning BMP, CBC HTN -Restart home meds once swallow study completed HLD -Restart home meds once swallow study completed Alzheimer's disease Currently A&Ox0, baseline A&Ox1. Per son, patient has been incoherent in recent phone call. -Frequent orientation -Raise blinds during the day -Restart home meds once swallow study completed MDD Manic mood disorder -Restart home meds once swallow study completed PCP: [facility] call Code: Intubate, NO CPR Prophylaxis: Lovenox, Protonix Dispo: admit to ICU for hypotension requiring levophed drip, expected LOS > 48 hours FMR H&P: Upper Level - Plan Date/Time: 05/01/202112 IStella, have evaluated this patient and agree with findings/plan as outlined by internal grinder tender resident. Pertinent changes/additions are listed here. 75 yo F presents from [facility] for altered mental status noted today. Unable to obtain any history from patient. Hypotension systolic 80s in [place] and in ED, given 2.5L then central line place and started on levophed. MAP >65 on exam now. She has been treated for UTI outpatient with cipro and diflucan which was stopped on 04/24 after culture resulted and then switched to macrobid, completed the 7 day course on 04/30. Culture grew ecoli UTI resistant to amp, Levaquin, Cipro. CT brain: diffuse cerebral atrophy, small vessel ischemic changes, no acute change CT chest/ab/pelvis: hiatal hernia, trace R pleural effusion, moderate stool, no acute changes EKG: NSR, no ST changes, inverted T waves V1-3, QTc 469 PE: Gen: awake, follows with eyes, does not follow commands, says the word yes to pain and when asked her name HEENT: NCAT, pupils equal and round Heart: RRR, no murmur Lungs: CTA anteriorly Abd: soft, NT, ND Ext: no edema RLE, left foot 3+ pitting edema, does not extend past ankle, pulses present bilaterally Skin: warm, dry, intact 75 yo F with PMH dementia, HTN, mood disorder presented from [place] for AMS and is admitted to ICU for shock requiring pressors. Shock, unknown cause -Meets SIRS criteria due to fever (101 in [place]), and HR>90. No tachypnea, normal WBC. Lactic acid was 3.5, downtrended to 1.2 on repeat -Differential considered. Sepsis from infection considered but no known source at this time. CT brain, chest, abdomen, pelvis ordered ED for further evaluation , now pending. Ecoli UTI was completely treated and repeat UA here without concern for infection. Urine and blood cultures drawn in ED. Cardiogenic considered, EKG without acute changes, troponin and BNP ordered and pending. Hypovolemic shock in differential with likely poor intake 2/2 dementia. Hemoglobin normal, no trauma, no history of GI loss. Random cortisol ordered for adrenal insufficiency. Low suspicion for PE at this time. -Given Levaquin, rocephin, vanc in ED. Will continue vanc and Levaquin for empiric coverage, pending urine and blood cultures. -Pending procalcitonin -Wean Levaphed as tolerated -Monitor strict I/Os, on LR @120 now. Chronic normocytic anemia -At baseline Thrombocytopenia -129 on admission -Monitor daily. Unsure if Depakote could be contributory Hypoalbuminemia -Likely nutritional deficiency in setting of dementia Borderline Qtc -Monitor on telemetry, caution with QT prolonging meds Will need med rec when mental status improves and safe for PO. Chronic medical problems per internal grinder tender note. IVF: s/p 2.5L in ED, continue maintenance LR @ 120 Lines: Left IJ Diet: NPO for mental status Ppx: lovenox, pepcid PCP: han kelley Attending: Carey Dispo: admit to ICU, expected LOS>48 hours Addendum - Attending - Attending Attestation Date/Time: 05/02/20 0012 I personally evaluated the patient and discussed the management with . [] I agree with the History, Examination, Assessment and Plan documented above with any addition or exceptions noted below. see my dictated H&P for details. Doc#[id number]
--- NOTE | 2020-05-01 21:25 | CT ---
EXAM: CT brain without contrast HISTORY: Fever and hypotension. Altered mental status COMPARISON: 11/25/2018 TECHNIQUE: Multiple contiguous axial images were obtained and a CT of the brain without contrast. FINDINGS: Diffuse cerebral atrophy is seen. This is slightly more pronounced the frontotemporal regio ns. There are scattered hypodensities in the subcortical and periventricular white matter consistent with small vessel ischemic disease. There is no evidence of hydrocephalus, intracranial he morrhage, or extra-axial fluid collection. The calvarium and overlying soft tissues are unremarkable. The visualized paranasal sinuses and masto id air cells are well aerated. IMPRESSION: No evidence of acute intracranial abnormality
--- NOTE | 2020-05-01 21:33 | CT ---
EXAM: CT of the chest with contrast CT of the abdomen and pelvis with contrast HISTORY: Fever and hypotension COMPARISON: None TECHNIQUE: 1. Multiple contiguous axial images were obtained in a CT the chest with contrast. Coronal and sagitt al reformats were performed. 2. Multiple contiguous axial images were obtained and a CT of the abdomen and pelvis with contrast. C oronal and sagittal reformats were performed. FINDINGS: CT CHEST: HEART: Normal in size without focal cardiac abnormality. Calcifications in the coronary arteries. MEDIASTINUM: No hilar or mediastinal lymphadenopathy. There is a moderate hiatal hernia. LUNGS: No focal infiltrates, nodules, or masses. Bilateral atelectasis is seen. PLEURAL SPACE: Trace right pleural effusion. No pneumothorax. CHEST WALL SOFT TISSUES: Left IJ central venous catheter with its tip in the superior vena cava. CT ABDOMEN/PELVIS: ABDOMEN: LIVER: within normal limits. BILE DUCTS: Normal caliber. GALLBLADDER: Removed PANCREAS: within normal limits. SPLEEN: within normal limits. ADRENALS: within normal limits. KIDNEYS: within normal limits. PELVIS: REPRODUCTIVE ORGANS: Status post hysterectomy. URETERS: within normal limits. BLADDER: within normal limits. PERITONEUM: No ascites or free air, no fluid collection. BOWEL: Normal caliber. Multiple scattered diverticula in the colon. Moderate stool is seen in the rec mariaa vault. MESENTERY AND RETROPERITONEUM: No enlarged mesenteric or retroperitoneal lymph nodes. VESSELS: Atherosclerotic calcifications. ABDOMINAL WALL: Small bilateral fat-containing inguinal hernias. OSSEOUS STRUCTURES: Degenerative changes in the spine. IMPRESSION: 1. No evidence of acute intrathoracic or intra-abdominal/pelvic abnormality 2. Tiny right pleural effusion with adjacent atelectasis 3. Diverticulosis 4. Moderate stool in the rectal vault. 5. Hiatal hernia 6. Bilateral inguinal hernias
[2020-05-01 21:48] LABS: Lactic Acid 1.2 mmol/L (0.5-2.2)
[2020-05-01] MEDS: Lactated Ringer's 1,000 ML IV SCH (23:30)
[2020-05-02] MEDS ORDERED: Norepinephrine 8 MG/0.9% NS 250 ML IVPB SCH (01:15)
--- NOTE | 2020-05-02 01:26 | HP ---
CHIEF COMPLAINT: Altered mental status. HISTORY OF PRESENT ILLNESS: I have reviewed all documentation, discussed the care and management of this patient with Dr. Alvarado and Maico. I agree with the documentation and their H and P unless otherwise stated in the following attestation. In summary, Ms. Ashby is a pleasant 75-year-old female who presented from the [facility] with a complaint per report of decreased mental status and a fever of 101 Fahrenheit. She had allegedly finished a course of Macrobid yesterday to treat a urinary tract infection. Patient is currently alert and oriented to person only and is minimally verbal at this time. Residents have called the patient's next of kin to obtain additional history and discuss goals of care with the patient. ER course. In the ER, the patient was found to be hypotensive. A left internal jugular CVC was placed and the patient was started on Levophed drip. She received vancomycin, Levaquin, and Rocephin. She also received a 1.5 L normal saline bolus. She also received a CT of the brain and of the chest, abdomen, and pelvis. Chest x-ray and EKG were also obtained. Please see the resident note for past medical, surgical, social, family, allergies, and up-to-date medication list. PHYSICAL EXAMINATION: VITAL SIGNS: Blood pressure was initially 82/39 prior to fluid bolus and initiation of vasopressors. At the time of my exam, patient's blood pressure is 130s/80s. Pulse is 67, respiratory rate 22, T-max of 98.1 Fahrenheit, although the patient had a reported T-max of 101. Pulse ox 100% on room air. GENERAL: No acute distress. Alert and oriented to person only. Patient will track and will follow around the room, but does not follow commands well. CARDIOVASCULAR: Normal rate, regular rhythm. No murmurs, rubs, or gallops. PULMONARY: Clear to auscultation bilaterally. Normal effort. EXTREMITIES: No edema. SKIN: Warm, dry, and intact without obvious lesion. PERTINENT LABORATORY FINDINGS: Hemoglobin 11.7, which appears to be near her baseline. Platelets 129, which is below her baseline. Sodium 135, bicarb 18, glucose 138, albumin 3.0. Lactic acid 3.5. Urinalysis is remarkable for elevated leuk esterase 25 and 2+ uric acid crystals, but is otherwise negative. EKG shows normal sinus rhythm. Chest x-ray shows no acute processes. CT brain: Pending. CT chest, abdomen, and pelvis: Pending. ASSESSMENT AND PLAN: Ms. Ashby is a 75-year-old female with past medical history of dementia and seizure disorder. She also has reported history of hypotension on prior H and P on her chart. She was sent from [facility] with a concern for decrease of mental status and a fever of 101. She was found to be hypotensive upon arrival the ER and has since required initiation of vasopressors. Plan is as follows: 1. Shock of unknown etiology. Differential includes sepsis, although no obvious infection has been identified at this time. Patient meets SIRS criteria based of reported temperature and a pulse of 90. Cardiac enzymes have not been ordered at this time, so we will draw and run those to evaluate for a cardiogenic component of her hypotension. It is also possible this is due to profound hypovolemia due to poor p.o. intake, given her advanced stage of dementia. We will also check a cortisol level to evaluate for endocrine causes. Continue broad-spectrum antibiotics and vasopressors as needed. We will await report of the CT scans to see if a source of infection can be identified. 2. Dementia. Continue home medications. We will keep the next-of-kin updated. 3. Seizure disorder. Continue Depakote and check a Depakote level. Disposition/length of stay: Inpatient ICU greater than 2 midnights. I personally spent approximately 45 minutes of critical care time with this patient. Job ID: [id number] MTDD
[2020-05-02 04:15] LABS: #Eosinphils 0.3 thou/uL (0.0-0.7); #Lymphocytes 1.1 thou/uL (1.20-3.40); #Monocytes 1.1 thou/uL (0.11-0.59); #Neutrophils 5.8 thou/uL (1.40-6.50); %Basophils 0.4 % (0.0-1.0); %Eosinophils 3.6 % (0.0-10.0); %Lymphocytes 12.8 % (21.0-51.0); %Neutrophils 70.2 % (42.0-75.0); Hemoglobin 11.2 g/dL (12.0-16.0); Mean Corpuscular HGB CONC 34.2 g/dL (32.0-36.0); Mean Corpuscular Hemoglobin 31.3 pg (27.0-31.0); Mean Corpuscular Volume 91.5 fL (78.0-98.0); Mean Platelet Volume 8.1 fL (7.4-10.4); Platelet Count 153 thou/uL (130-400); RBC Distribution Width 11.9 % (11.5-14.5); Red Blood Cell (RBC) Count 3.57 mill/uL (4.20-5.40); White Blood Cell (WBC) Count 8.3 thou/uL (4.8-10.8)
[2020-05-02 04:43] LABS: Anion Gap 12 mmol/L (10-20); BUN (Urea Nitrogen) 13 mg/dL (9.8-20.1); Calc. Creatinine Clearance 92 mL/min (70-130); Carbon Dioxide 22 mmol/L (23-31); Chloride 113 mmol/L (98-107); Estimated GFR-MDRD 89; Glucose 118 mg/dL (83-110); Potassium 3.5 mmol/L (3.5-5.1); Sodium 143 mmol/L (136-145)
--- NOTE | 2020-05-02 06:07 | PDOC.FM ---
- Subjective Subjective: Patient was laying in bed in no acute distress at the time of evaluation. Patient was alert and able to mutter several small phrases such as "I can't hear you" and "Ouch" after multiple prompts, but would not respond to questioning concerning pain location, person, place or location. Per Nursing staff, patient stated her name once after multiple prompts, but was otherwise non-communicative. - Objective Vital Signs & Weight: Vital Signs (12 hours) Temp Pulse Ox 05/02/20 04:00 97.8 F 05/02/20 00:00 97.7 F 05/01/20 23:55 100 Weight Weight 79.2 kg Most Recent Monitor Data Heart Rate from ECG 52 NIBP 101/58 NIBP BP-Mean 72 Respiration from ECG 12 SpO2 99 I&O: 04/30/20 05/01/20 05/02/20 06:59 06:59 06:59 Intake Total 300 Balance 300 Result Diagrams: 05/02/20 03:07 05/02/20 03:07 Phys Exam - Physical Examination Constitutional: NAD HEENT: PERRLA, sclera anicteric, oral pharynx no lesions Neck: no nodes, supple Respiratory: no wheezing, no rales, no rhonchi, clear to auscultation bilateral Cardiovascular: RRR, no significant murmur, no rub Gastrointestinal: soft, non-tender, no distention, positive bowel sounds Musculoskeletal: no edema, pulses present Mild contracture of RUE Deviation from normal: See Subjective Skin: no rash, normal turgor Dx/Plan (1) SIRS (systemic inflammatory response syndrome) Code(s): R65.10 - SIRS OF NON-INFECTIOUS ORIGIN W/O ACUTE ORGAN DYSFUNCTION Status: Acute (2) Shock Code(s): R57.9 - SHOCK, UNSPECIFIED Status: Acute (3) Bipolar disorder Code(s): F31.9 - BIPOLAR DISORDER, UNSPECIFIED Status: Chronic Qualifiers: Active/Remission status: remission status unspecified Qualified Code(s): F31.9 - Bipolar disorder, unspecified (4) Mood disorder of manic type Code(s): F30.9 - MANIC EPISODE, UNSPECIFIED Status: Chronic (5) Alzheimer's dementia Code(s): G30.9 - ALZHEIMER'S DISEASE, UNSPECIFIED; F02.80 - DEMENTIA IN OTH DISEASES CLASSD ELSWHR W/O BEHAVRL DISTURB Status: Chronic Qualifiers: Alzheimer's disease onset: unspecified onset (6) Lactic acidosis Code(s): E87.2 - ACIDOSIS Status: Acute (7) AMS (altered mental status) Code(s): R41.82 - ALTERED MENTAL STATUS, UNSPECIFIED Status: Acute Qualifiers: Altered mental status type: unspecified Qualified Code(s): R41.82 - Altered mental status, unspecified (8) HTN (hypertension) Code(s): I10 - ESSENTIAL (PRIMARY) HYPERTENSION Status: Chronic (9) HLD (hyperlipidemia) Code(s): E78.5 - HYPERLIPIDEMIA, UNSPECIFIED Status: Chronic - Plan Plan: Patient is a 75 y/o female with a complex PMH who presents from a group home following an acute decline in her mental status and a recorded fever of > 101 F. 1. SIRS, AMS -Patient recorded Temp > 101 F at [facility] and was tachycardic on presentation - no obvious source of infection identified -Recently completed a 7 day course of Macrobid for E. coli UTI, sensitivity panel confirmed by Resident Night Team -Lactic Acid: 3.5 > 1.2 -UA: +Uric Acid, +Leuk. Est., but no evidence of Bacteria or Nitrites. -BCx: Pending -UCx: Pending -CXR: NAF -CT Brain: NAF -CT Chest: NAF -CT ABD/Pelvis: NAF -Will continue empiric Vancomycin and Levofloxacin for possible infectious etiology -See #2, #6 2. Hypotensive Shock -s/p Central Line placement in ED with Levophed gtt - currently reduced to 2.5 mcg/min -LR @ 120 ml/hr -Per chart review, BPs stable overnight -Trops: 0.015 -BNP: 27.6 -CPK: 320 -Cortisol: 12.9 -TSH: 1.16 -Procal: 0.16 -Swallow Study: Pending -Strict I&Os 3. Lactic Acidosis, resolved -Anion Gap: 13.5 > 8 -Lactic Acid: 3.5 > 1.2 -See #1, #2 4. HTN -Current BP goal of MAP > 65 -Will plan to restart home BP meds following BP stabilization and Swallow Study 5. HLD -Will plan to restart home meds following Swallow Study 6. Alzheimer's Disease -Currently A&Ox0 - reported baseline of A&Ox1 - see Subjective for input from Nursing -Will require frequent orientation with blinds open during the day -Will plan to restart home meds following Swallow Study 7. Mood Disorder with Mary Grace -Will plan to restart home meds following Swallow Study -See #6 PCP: GONZALO Code: Intubate, No CPR Diet: NPO pending Swallow Study Activity: Bed Rest VTE PPx: Lovenox GI PPx: Famotidine Dispo: Patient is currently stable and admitted to the ICU for further evaluation of SIRS, AMS and Hypotensive Shock. Will continue empiric antibiotics as per above with fluid resuscitation - plan to wean Levophed gtt when appropriate. AM Labs do not indicate overwhelming evidence for Cardiogenic or Endocrine causes of Hypotensive Shock, . Continue to investigate other causes of infectious nature and await results of BCx and UCx. Will contact son later this AM to discuss overall clinical course and clarify Code Status. Expected LOS 48H. Addendum - Attending - Attending Attestation Date/Time: 05/02/20 3344 I personally evaluated the patient and discussed the management with Dr. Russell. I agree with the History, Examination, Assessment and Plan documented above with any addition or exceptions noted below. The patient was admitted overnight for fever and hypotension. Covid test is pending. Lactic acidosis is improved. She remains on levophed but we will try weaning that. Cultures are pending, will continue broad spectrum antibiotics. She was treated appropriately for uti as an outpt and urine now looks better. Replacing fluids as pt appeared to be dehydrated on arrival.
[2020-05-02] MEDS: Lactated Ringer's 1,000 ML IV SCH ×3 (06:46→23:08)
[2020-05-02] MEDS: Enoxaparin Sodium 40 MG/0.4 ML SYRINGE SC SCH (07:24)
[2020-05-02] MEDS: Famotidine/PF 20 mg/2ml Vial SLOW IVP SCH ×2 (07:24→20:55)
--- NOTE | 2020-05-02 10:21 | CON ---
DATE OF CONSULTATION: 05/02/2020 REASON FOR CONSULTATION: Sepsis. This encompassed 75 minutes time. Of that time, greater than 50% was spent with the patient and/or on the patient's unit in the hospital. HISTORY OF PRESENT ILLNESS: The patient is a 75-year-old assisted patient from [place]. She was admitted to the facility last night with hypotension, was placed on Levophed drip, had fever up to 101.9. I am told she was diagnosed with the UTI about a week ago, but completed 7 days of therapy. Of note, her urine did not look dirty on admission. She had a COVID test drawn last night, but the result was not back. When I saw her in the ICU, she was not currently isolated, but I did put her on precautions until we know the results of the test. PAST MEDICAL HISTORY: 1. Dementia. 2. Hyperlipidemia. 3. Hypertension. 4. Mood disorder. PAST SURGICAL HISTORY: Unknown. FAMILY MEDICAL HISTORY: Unknown. SOCIAL HISTORY: Lives in [place]. Previously smoked. Does not consume alcohol. HOME MEDICATIONS: 1. Imodium. 2. Lipitor. 3. Depakote. 4. Oxybutynin. 5. Aricept. 6. Namenda. 7. Lisinopril. REVIEW OF SYSTEMS: Unobtainable secondary to her dementia. PHYSICAL EXAMINATION: VITAL SIGNS: Pulse 80, blood pressure 114/59 on Levophed 2 mcg/minute, O2 sat 100%, respiratory rate 19, and temperature 98.9. GENERAL: She is awake, in no distress. HEENT: Unremarkable. NECK: No adenopathy or JVD. She has a left IJ central line. CARDIOVASCULAR: S1 and S2, regular. LUNGS: Clear. ABDOMEN: Soft and nontender. EXTREMITIES: No clubbing, cyanosis or edema. LABORATORY DATA: Urinalysis shows some leukocyte esterase. Sodium 143, potassium 3.5, chloride 113, CO2 of 22, BUN 13, creatinine 0.6, and glucose 118. White blood cell count 8.3, hematocrit 32.7, and platelet count 153. Chest x-ray shows no mass, effusion or infiltrate. CT showed a very tiny right pleural effusion, otherwise was essentially negative. ASSESSMENT: Hypotension - appears to be better after hydration. The patient may be septic or may just be dry. PLAN: Since she is from a assisted and febrile, COVID does need to be ruled out. She needs to be isolated until then. Continue antibiotics as you are doing. She can leave the ICU after the Levophed drip is weaned off. Job ID: [id number]
[2020-05-02 13:54] LABS: SARS-CoV-2 MS2 Positive; SARS-CoV-2 N Gene Negative; SARS-CoV-2 S Gene Negative; SARS-CoV-2 by NAA Not Detected (NotDetected); SARS-CoV-2 orf1ab Negative
[2020-05-02] MEDS ORDERED: Vancomycin HCl 1.25 GM in Sodium Chloride 0.9% 250 ML 250 ML IVPB SCH (23:00)
[2020-05-03] MEDS: Lactated Ringer's 1,000 ML IV SCH ×3 (05:51→20:25)
--- NOTE | 2020-05-03 06:52 | PDOC.FM ---
- Subjective Subjective: Patient was resting comfortably in bed at the time of evaluation. Her mental status appeared greatly improved, and she was pleasant and conversant, although still somewhat confused. Patient denied any acute overnight events, specifically with regard to chest pain, SOB, nausea, vomiting or ABD pain. - Objective Vital Signs & Weight: Vital Signs (12 hours) Temp Pulse Resp BP Pulse Ox 05/03/20 04:19 98.3 F 89 20 98/54 L 96 05/02/20 23:50 105/67 05/02/20 23:42 97.3 F L 85 20 100/47 L 95 05/02/20 19:46 97.2 F L 98 20 122/71 93 L Weight Admit Weight 78.925 kg Weight 79.2 kg Most Recent Monitor Data Heart Rate from ECG 83 NIBP 121/67 NIBP BP-Mean 85 Respiration from ECG 9 SpO2 99 I&O: 05/01/20 05/02/20 05/03/20 06:59 06:59 06:59 Intake Total 1270.7 3624.7 Output Total 1400 Balance 1270.7 2224.7 Result Diagrams: 05/03/20 08:21 05/03/20 08:21 Phys Exam - Physical Examination Constitutional: NAD HEENT: sclera anicteric, oral pharynx no lesions Mildly dry/cracked lips No evidence of meningeal signs - Huber(-) Neck: supple, full ROM Respiratory: no wheezing, no rales, no rhonchi, clear to auscultation bilateral Cardiovascular: RRR, no significant murmur, no rub Gastrointestinal: soft, non-tender, no distention, positive bowel sounds Musculoskeletal: no edema, pulses present Neurological: non-focal, moves all 4 limbs Psychiatric: normal affect Deviation from normal: A&Ox1 Deviation from normal: Patient demonstrated a diffuse, blanching rash over most of her body Dx/Plan (1) SIRS (systemic inflammatory response syndrome) Code(s): R65.10 - SIRS OF NON-INFECTIOUS ORIGIN W/O ACUTE ORGAN DYSFUNCTION Status: Acute (2) Shock Code(s): R57.9 - SHOCK, UNSPECIFIED Status: Acute (3) Bipolar disorder Code(s): F31.9 - BIPOLAR DISORDER, UNSPECIFIED Status: Chronic Qualifiers: Active/Remission status: remission status unspecified Qualified Code(s): F31.9 - Bipolar disorder, unspecified (4) Mood disorder of manic type Code(s): F30.9 - MANIC EPISODE, UNSPECIFIED Status: Chronic (5) Alzheimer's dementia Code(s): G30.9 - ALZHEIMER'S DISEASE, UNSPECIFIED; F02.80 - DEMENTIA IN OTH DISEASES CLASSD ELSWHR W/O BEHAVRL DISTURB Status: Chronic Qualifiers: Alzheimer's disease onset: unspecified onset (6) Lactic acidosis Code(s): E87.2 - ACIDOSIS Status: Acute (7) AMS (altered mental status) Code(s): R41.82 - ALTERED MENTAL STATUS, UNSPECIFIED Status: Acute Qualifiers: Altered mental status type: unspecified Qualified Code(s): R41.82 - Altered mental status, unspecified (8) HTN (hypertension) Code(s): I10 - ESSENTIAL (PRIMARY) HYPERTENSION Status: Chronic (9) HLD (hyperlipidemia) Code(s): E78.5 - HYPERLIPIDEMIA, UNSPECIFIED Status: Chronic - Plan Plan: Patient is a 75 y/o female with a complex PMH who presents from a care home following an acute decline in her mental status and a recorded fever of > 101 F. 1. SIRS, AMS -[facility] and was tachycardic on presentation - no obvious source of infection identified -Recently completed a 7 day course of Macrobid for E. coli UTI, sensitivity panel confirmed by Resident Night Team -Lactic Acid: 3.5 > 1.2 -UA: +Uric Acid, +Leuk. Est., but no evidence of Bacteria or Nitrites. -BCx: Pending -UCx: Pending -CXR: NAF -CT Brain: NAF -CT Chest: NAF -CT ABD/Pelvis: NAF -Will continue empiric Vancomycin and Levofloxacin for possible infectious etiology -See #2, #6 2. Hypotensive Shock -s/p Central Line placement in ED with Levophed gtt - currently not requiring pressure support -LR @ 120 ml/hr -Per chart review, BPs stable overnight -Trops: 0.015 -BNP: 27.6 -CPK: 320 -Cortisol: 12.9 -TSH: 1.16 -Procal: 0.16 -Swallow Study: Pending -Strict I&Os 3. Lactic Acidosis, resolved -Anion Gap: 13.5 > 8 -Lactic Acid: 3.5 > 1.2 -See #1, #2 4. HTN -Current BP goal of MAP > 65 -Will plan to restart home BP meds following BP stabilization and Swallow Study 5. HLD -Will plan to restart home meds following Swallow Study 6. Alzheimer's Disease -Patient was A&Ox0 on presentation and non-verbal, but now appears to be at her reported baseline of A&Ox1 - mental status appears to be improving with increased verbal communication and coherent sentences -Will require frequent orientation with blinds open during the day -Will plan to restart home meds following Swallow Study 7. Mood Disorder with Mary Grace -Will plan to restart home meds following Swallow Study -See #6 PCP: CC Code: DNR Diet: NPO pending Swallow Study Activity: Bed Rest VTE PPx: Lovenox GI PPx: Famotidine Dispo: Patient is currently stable and admitted to the Medical Floor for further evaluation of SIRS, AMS and Hypotensive Shock. BPs have been stable and no reported temperatures since admission, with mental staus improving. Labs do not indicate overwhelming evidence for Cardiogenic or Endocrine causes of Hypotensive Shock. Continue to investigate other causes of infectious nature and await results of BCx and UCx. Ensure that Speech Therapy performs Swallow Assessment now that patient is confirmed to be COVID-19(-) and advance diet as tolerated. Expected LOS 48H. Addendum - Attending - Attending Attestation Date/Time: 05/03/20 1779 I personally evaluated the patient and discussed the management with Dr. Russell. I agree with the History, Examination, Assessment and Plan documented above with any addition or exceptions noted below. Patient was weaned from levophed and transferred to medical. She was speaking with Dr. Russell this morning. She now has a diffuse pruritic erythematous rash , looks like a drug eruption. Will stop vancomycin. Pt is hypokalemic, will replace potassium. Cultures are negative. Benadryl added for pruritis. If pt continues to improve, [facility].
[2020-05-03] MEDS: Enoxaparin Sodium 40 MG/0.4 ML SYRINGE SC SCH (08:13)
[2020-05-03] MEDS: Famotidine/PF 20 mg/2ml Vial SLOW IVP SCH ×2 (08:14→20:22)
[2020-05-03] MEDS ORDERED: diphenhydrAMINE 50 MG/ML VIAL ONE (08:15)
[2020-05-03] MEDS ORDERED: diphenhydrAMINE 50 MG/ML VIAL IVP SCH (08:45)
[2020-05-03 09:11] LABS: #Eosinphils 0.3 thou/uL (0.0-0.7); #Lymphocytes 0.7 thou/uL (1.20-3.40); #Monocytes 0.4 thou/uL (0.11-0.59); #Neutrophils 4.8 thou/uL (1.40-6.50); %Basophils 0.7 % (0.0-1.0); %Eosinophils 4.3 % (0.0-10.0); %Lymphocytes 11.1 % (21.0-51.0); %Monocytes 6.8 % (0.0-10.0); %Neutrophils 77.2 % (42.0-75.0); Hemoglobin 10.4 g/dL (12.0-16.0); MDiff Complete? YES; Mean Corpuscular HGB CONC 31.9 g/dL (32.0-36.0); Mean Corpuscular Volume 91.1 fL (78.0-98.0); Mean Platelet Volume 7.9 fL (7.4-10.4); Platelet Count 118 thou/uL (130-400); Platelet Morphology Comment Appears Decreased; Polychromasia SLIGHT = 2-3 cells (100X) (0-2/hpf); RBC Distribution Width 11.7 % (11.5-14.5); Red Blood Cell (RBC) Count 3.58 mill/uL (4.20-5.40); White Blood Cell (WBC) Count 6.2 thou/uL (4.8-10.8)
[2020-05-03 09:20] LABS: Anion Gap 9 mmol/L (10-20); BUN (Urea Nitrogen) 7 mg/dL (9.8-20.1); Calc. Creatinine Clearance 101 mL/min (70-130); Calcium 7.2 mg/dL (7.8-10.44); Carbon Dioxide 22 mmol/L (23-31); Chloride 114 mmol/L (98-107); Estimated GFR-MDRD Greater than 90; Glucose 76 mg/dL (83-110); Potassium 3.1 mmol/L (3.5-5.1); Sodium 142 mmol/L (136-145)
[2020-05-03] MEDS ORDERED: Potassium Chloride 20 MEQ/100 ML PREMIX BAG IVPB SCH (09:30)
[2020-05-03] MEDS ORDERED: Loperamide HCl 2 MG CAP PO PRN (10:16)
[2020-05-03] MEDS ORDERED: Potassium Chloride 20 MEQ in Premix Bag 1 BAG IVPB SCH (10:30)
[2020-05-03] MEDS ORDERED: Valproate Sodium 250 mg/5 ml UD Cup PO SCH (12:00)
[2020-05-03] MEDS ORDERED: Divalproex Sodium 250 MG (DR) TAB PO SCH (12:00)
[2020-05-03] MEDS ORDERED: Calcium Carbonate 600 MG TAB PO SCH (12:00)
[2020-05-03] MEDS: Divalproex Sodium 125 mg Sprinkle Capsule PO SCH (20:22)
[2020-05-03] MEDS ORDERED: Donepezil HCl 10 MG TAB PO SCH (21:00)
[2020-05-03] MEDS ORDERED: Atorvastatin Calcium 40 MG TAB PO SCH (21:00)
[2020-05-04 05:47] LABS: #Eosinphils 0.3 thou/uL (0.0-0.7); #Lymphocytes 1.1 thou/uL (1.20-3.40); #Monocytes 0.5 thou/uL (0.11-0.59); #Neutrophils 4.5 thou/uL (1.40-6.50); %Basophils 0.6 % (0.0-1.0); %Eosinophils 4.9 % (0.0-10.0); %Lymphocytes 16.9 % (21.0-51.0); %Monocytes 8.4 % (0.0-10.0); %Neutrophils 69.2 % (42.0-75.0); Hemoglobin 10.9 g/dL (12.0-16.0); Mean Corpuscular HGB CONC 33.5 g/dL (32.0-36.0); Mean Corpuscular Hemoglobin 30.8 pg (27.0-31.0); Mean Corpuscular Volume 91.9 fL (78.0-98.0); Mean Platelet Volume 7.5 fL (7.4-10.4); Platelet Count 133 thou/uL (130-400); RBC Distribution Width 11.8 % (11.5-14.5); Red Blood Cell (RBC) Count 3.55 mill/uL (4.20-5.40); White Blood Cell (WBC) Count 6.4 thou/uL (4.8-10.8)
[2020-05-04] MEDS: Divalproex Sodium 125 mg Sprinkle Capsule PO SCH (06:02)
[2020-05-04 06:05] LABS: Anion Gap 11 mmol/L (10-20); BUN (Urea Nitrogen) 7 mg/dL (9.8-20.1); Calc. Creatinine Clearance 82 mL/min (70-130); Calcium 8.2 mg/dL (7.8-10.44); Carbon Dioxide 25 mmol/L (23-31); Chloride 108 mmol/L (98-107); Estimated GFR-MDRD 78; Glucose 88 mg/dL (83-110); Potassium 3.8 mmol/L (3.5-5.1); Sodium 140 mmol/L (136-145)
[2020-05-04] MEDS: Lactated Ringer's 1,000 ML IV SCH (06:19)
--- NOTE | 2020-05-04 07:20 | PDOC.FM ---
- Subjective Subjective: Pt is doing well. Seems to be at baseline. No overnight events. No fevers. Has not required levophed. Pressure are low normal. - Objective Vital Signs & Weight: Vital Signs (12 hours) Temp Pulse Resp BP BP Pulse Ox 05/04/20 04:00 98.6 F 90 16 103/69 99 05/04/20 00:00 99.1 F 89 14 104/64 92 L 05/03/20 20:00 96 05/03/20 19:45 99.1 F 93 20 100/69 96 Weight Admit Weight 78.925 kg Weight 79.2 kg Most Recent Monitor Data Heart Rate from ECG 83 NIBP 121/67 NIBP BP-Mean 85 Respiration from ECG 9 SpO2 99 I&O: 05/03/20 05/04/20 05/05/20 06:59 06:59 06:59 Intake Total 3624.7 1840 Output Total 1400 1 Balance 2224.7 1839 Result Diagrams: 05/04/20 05:21 05/04/20 05:21 Phys Exam - Physical Examination Constitutional: NAD HEENT: PERRLA, moist MMs Neck: no JVD, full ROM Respiratory: no wheezing, clear to auscultation bilateral Cardiovascular: RRR, no significant murmur Gastrointestinal: soft, positive bowel sounds Musculoskeletal: no edema, pulses present Deviation from normal: AAO x 0 but difficult to understand, responsive, able to concentrate Skin: no rash, cap refill <2 seconds Dx/Plan (1) AMS (altered mental status) Code(s): R41.82 - ALTERED MENTAL STATUS, UNSPECIFIED Status: Acute Qualifiers: Altered mental status type: unspecified Qualified Code(s): R41.82 - Altered mental status, unspecified (2) Lactic acidosis Code(s): E87.2 - ACIDOSIS Status: Acute (3) SIRS (systemic inflammatory response syndrome) Code(s): R65.10 - SIRS OF NON-INFECTIOUS ORIGIN W/O ACUTE ORGAN DYSFUNCTION Status: Acute (4) Alzheimer's dementia Code(s): G30.9 - ALZHEIMER'S DISEASE, UNSPECIFIED; F02.80 - DEMENTIA IN OTH DISEASES CLASSD ELSWHR W/O BEHAVRL DISTURB Status: Chronic Qualifiers: Alzheimer's disease onset: unspecified onset (5) Bipolar disorder Code(s): F31.9 - BIPOLAR DISORDER, UNSPECIFIED Status: Chronic Qualifiers: Active/Remission status: remission status unspecified Qualified Code(s): F31.9 - Bipolar disorder, unspecified (6) HLD (hyperlipidemia) Code(s): E78.5 - HYPERLIPIDEMIA, UNSPECIFIED Status: Chronic (7) HTN (hypertension) Code(s): I10 - ESSENTIAL (PRIMARY) HYPERTENSION Status: Chronic (8) Mood disorder of manic type Code(s): F30.9 - MANIC EPISODE, UNSPECIFIED Status: Chronic - Plan Plan: Patient is a 75 y/o female with a complex PMH who presents from a assisted following an acute decline in her mental status and a recorded fever of > 101 F. 1. SIRS, AMS -Patient recorded Temp > 101 F at [facility] and was tachycardic on presentation - no obvious source of infection identified -Recently completed a 7 day course of Macrobid for E. coli UTI, sensitivity panel confirmed by Resident Night Team -Lactic Acid: 3.5 > 1.2 -UA: +Uric Acid, +Leuk. Est., but no evidence of Bacteria or Nitrites. -BCx: Pending -UCx: Pending -CXR: NAF -CT Brain: NAF -CT Chest: NAF -CT ABD/Pelvis: NAF -continue levaquin for a total of 7 days -See #2, #6 2. Hypotensive Shock -s/p Central Line placement in ED with Levophed gtt - currently not requiring pressure support -LR @ 120 ml/hr -Per chart review, BPs stable overnight -Trops: 0.015 -BNP: 27.6 -CPK: 320 -Cortisol: 12.9 -TSH: 1.16 -Procal: 0.16 -Swallow Study: pureed food -Strict I&Os 3. Lactic Acidosis, resolved -Anion Gap: 13.5 > 8 -Lactic Acid: 3.5 > 1.2 -See #1, #2 4. HTN -Current BP goal of MAP > 65 5. HLD -Will plan to restart home meds 6. Alzheimer's Disease -Will require frequent orientation with blinds open during the day -Will plan to restart home meds 7. Mood Disorder with Mary Grace -Will plan to restart home meds following Swallow Study -See #6 PCP: CC Code: DNR Diet: pureed food Activity: Bed Rest VTE PPx: Lovenox GI PPx: Famotidine Dispo: discharge today and finish an abx course Addendum - Attending - Attending Attestation Date/Time: 05/04/20 5287 I personally evaluated the patient and discussed the management with Dr. Purcell. I agree with the History, Examination, Assessment and Plan documented above with any addition or exceptions noted below. Pt appears to be back to baseline. Cultures are negative. I suspect she was very dehydrated which led to her hospitalization. Will d/c back to assisted.
[2020-05-04 07:41] VITALS: TEMP 98.2
[2020-05-04] MEDS: Enoxaparin Sodium 40 MG/0.4 ML SYRINGE SC SCH (08:28)
[2020-05-04] MEDS: Famotidine/PF 20 mg/2ml Vial SLOW IVP SCH (08:28)
[2020-05-04] MEDS ORDERED: Oxybutynin ER 5 MG TAB PO SCH (09:00)
[2020-05-04 12:00] VITALS: BP 115/75
--- NOTE | 2020-05-05 12:58 | DIS ---
DATE OF ADMISSION: 05/01/2020 DATE OF DISCHARGE: 05/04/2020 RESIDENT: Chivo Purcell, DISCHARGE ATTENDING: Nat Enciso MD CONSULTS: None. PROCEDURES: 1. Brain CT on 05/01/2020 revealed no evidence of acute intracranial abnormality. 2. CT chest, abdomen, and pelvis on 05/01/2020 revealed no evidence of acute intrathoracic for extraabdominal/pelvic abnormality. Tiny right pleural effusion with adjacent atelectasis. Diverticulosis. Moderate stool in the rectal vault. Hiatal hernia. Bilateral inguinal hernias. 3. Chest x-ray on 05/01/2020 revealed no evidence of acute cardiopulmonary disease. 4. Chest x-ray on 05/01/2020 revealed status post central line placement without evidence of complication. 5. On 05/01/2020, left IJ central line placed. PRIMARY DIAGNOSES: 1. Hypertensive shock without any etiology. 2. Lactic acidosis. 3. Alzheimer disease. SECONDARY DIAGNOSES: 1. Hypertension. 2. Hyperlipidemia. 3. Mood disorder with flavia. DISCHARGE MEDICATIONS: 1. Aricept 10 mg p.o. at bedtime. 2. Namenda 10 mg p.o. b.i.d. 3. Oxybutynin 5 mg p.o. daily 4. Depakote 250 mg p.o. 5. Atorvastatin 80 mg p.o. daily. 6. Depakote Sprinkles 500 mg p.o. 7. Loperamide 2 mg p.o. q.i.d. 8. Lisinopril 5 mg p.o. daily. 9. Tylenol 650 mg p.o. q.4 hours p.r.n. pain. 10. Levaquin 750 mg daily for 5-day treatment. DISCONTINUE MEDICATIONS: None. HISTORY OF PRESENT ILLNESS/HOSPITAL COURSE: The patient is a 75-year-old female who [facility] with acute decline in her mental status and recorded fever of 101. Due to this, we worked her up for an infectious etiology and subsequently, did not find one. She did have 10,000 normal krzysztof, colony- forming units in her urine. Her blood cultures were negative. Chest x-ray was nonrevealing. She had recently been treated for Escherichia coli UTI with Macrobid for 7 days. When she came in, she was hypotensive, requiring a central line, fluid resuscitation, and Levophed. She was on Levophed for short time and subsequently taken off, and her pressures were stable in the 90s to 100s systolic. She regained her mentation to her baseline. We treated the patient for possible UTI that did not grow out of bacteria. We will treat her for 7 days with Levaquin. We also worked her up for adrenal insufficiency, but this was negative. She also had a normal TSH, BNP was 27.6. We did a swallow study, and she requires pureed food. [facility] in [facility] condition. DISPOSITION: Stable. DISCHARGE INSTRUCTIONS: 1. Location: [facility]. 2. Diet: Pureed food, heart healthy. 3. Activity: As tolerated. 4. Followup: Follow up with physician on arrival to a [facility]. Job ID: [id number] MTDD
--- NOTE | 2020-05-06 15:42 | EKG ---
Test Reason : Blood Pressure : / mmHG Vent. Rate : 092 BPM Atrial Rate : 092 BPM P-R Int : 114 ms QRS Dur : 080 ms QT Int : 380 ms P-R-T Axes : 028 049 022 degrees QTc Int : 469 ms Normal sinus rhythm Nonspecific T wave abnormality Abnormal ECG Confirmed by FOREIGN STUBBS DO ([id number]), publication editor MAHAD TAFOYA ([id number]) on 05/06/2020 3:42:32 PM Referred By: Confirmed By:FOREIGN STUBBS DO
--- NOTE | 2020-05-06 15:42 | EKG ---
Test Reason : Blood Pressure : / mmHG Vent. Rate : 093 BPM Atrial Rate : 093 BPM P-R Int : 180 ms QRS Dur : 072 ms QT Int : 454 ms P-R-T Axes : 042 034 013 degrees QTc Int : 564 ms Sinus rhythm with marked sinus arrhythmia with junctional escape complexes Nonspecific T wave abnormality Abnormal ECG Confirmed by FOREIGN STUBBS DO ([id number]), design editor MAHAD TAFOYA ([id number]) on 05/06/2020 3:42:53 PM Referred By: Confirmed By:FOREIGN STUBBS DO
--- NOTE | 2020-05-18 00:07 | PQF ---
CLINICAL DOCUMENTATION CLARIFICATION FORM: Dear : Nat Enciso MD Date / Time: 05/17/2020 Please exercise your independent, professional judgment in responding to the clarification form. Clinical indicators are provided on the bottom of this form for your review Please check appropriate box(es): Conflicting documentation was noted in the Medical Record; please clarify if patient is being treated/monitored for: [ x ] Hypotensive shock [ ] Hypertensive shock [ ] Other diagnosis (Please specify if any) [ ] Unable to determine Physician Signature: Date/Time: For continuity of documentation, please document condition throughout progress notes and discharge summary. Thank You. To be completed by CDI/Coding staff for physician review: w Present w Clinical Indicators - Signs / Symptoms / Labs w Results and Location in Medical Record w [ x ] w Hypertensive shock without any etiology. w Discharge summary on w [x ] w Hpotensive shock-s/p cental line placement in ED with levophed gtt. w Family medicine progress notes on 05/03 w [x ] w When she came in, she was hypotensive, requiring a central line, fluid resuscitation, and levophed.she was on levophed for short time and subsequently taken off, and her pressure were stable. w Discharge summary on 05/05 w [x ] w I suspect she was very dehydrated which led to hospitalization w Family medicine progress notes on 05/04 w Present w Risk Factors w Results and Location in Medical Record w [ x] w dehydrated w Family medicine progress notes on 05/04 w [ x ] w AMS w Family H&P on 05/01 w [ ] w w w Present w Treatments w Results and Location in Medical Record w [ x ] w Levophed 8mg w Medication on , w [ x ] w Central line placement w Chest X ray on 05/01 w [ ] w w CDS/Service Developer Signature: RK Phone #: Date/Time: 05/17/2020 This is a permanent part of the Medical Record [facility]
== END 2020-05-04 12:02 | DRG 871 ==
LOC: ERS 18:23 → CCU 20:53 → T4-B 05-02 18:21
PROVIDERS: ADMIT Family Medicine; ATTEND Family Medicine
PROC: 02HV33Z Insertion of Infusion Device into Superior Vena Cava, Percutaneous Approach (ICD-10-PCS; principal; 2020-05-01)
DX: R57.8 Other shock (principal); R40.2112 Coma scale, eyes open, never, at arrival to emergency department; R40.2342 Coma scale, best motor response, flexion withdrawal, at arrival to emergency department; R40.2222 Coma scale, best verbal response, incomprehensible words, at arrival to emergency department; E87.2 Acidosis; R65.10 Systemic inflammatory response syndrome (SIRS) of non-infectious origin without acute organ dysfunction; F30.9 Manic episode, unspecified; I10 Essential (primary) hypertension; Z66 Do not resuscitate; G30.9 Alzheimer's disease, unspecified; F02.80 Dementia in other diseases classified elsewhere, unspecified severity, without behavioral disturbance, psychotic disturbance, mood disturbance, and anxiety; E78.5 Hyperlipidemia, unspecified; K44.9 Diaphragmatic hernia without obstruction or gangrene; K40.20 Bilateral inguinal hernia, without obstruction or gangrene, not specified as recurrent; Z79.899 Other long term (current) drug therapy; D64.9 Anemia, unspecified; D69.6 Thrombocytopenia, unspecified; G43.909 Migraine, unspecified, not intractable, without status migrainosus; E86.0 Dehydration; E87.6 Hypokalemia; L93.2 Other local lupus erythematosus; Z20.828 Contact with and (suspected) exposure to other viral communicable diseases
CPT/HCPCS: 36415; 36416; 36556; 51701; 70450; 71045; 71260; 74177; 80048; 80053; 80164; 81003; 81015; 82533; 82550; 83605; 83880; 84145; 84443; 84484; 85025; 87040; 87086; 87635; 93005; 96361; 96365; 96366; 96367; 96375; 99292; J0696; J1200; J1650; J1956; J3370; J3480; J7050; Q9967; S0028; U0003

== ENCOUNTER 2023-02-21 16:21 | Inpatient (IN) | payer MEDICARE, MEDICAID ==
[~2023-02-21 16:21] MED LIST changes: -Iopamidol-370 76% 500 ML 1 ML ONE; +Iopamidol-370 76% 500 ML MDV (1 ML CHARGE) ONE
[2023-02-21 17:35] LABS: #Eosinphils 0.1 thou/uL (0.0-0.7); #Monocytes 0.9 thou/uL (0.11-0.59); #Neutrophils 10.2 thou/uL (1.40-6.50); %Basophils 0.3 % (0.0-1.0); %Eosinophils 0.4 % (0.0-10.0); %Lymphocytes 8.2 % (21.0-51.0); %Monocytes 7.5 % (0.0-10.0); %Neutrophils 83.2 % (42.0-75.0); Mean Corpuscular HGB CONC 33.2 g/dL (32.0-36.0); Mean Corpuscular Hemoglobin 28.7 pg (27.0-31.0); Mean Corpuscular Volume 86.2 fl (78.0-98.0); Mean Platelet Volume 10.7 fL (7.4-10.4); Platelet Count 186 10x3/uL (130-400); RBC Distribution Width 14.6 % (11.5-14.5); Red Blood Cell (RBC) Count 3.49 mill/uL (4.20-5.40); White Blood Cell (WBC) Count 12.2 10x3/uL (4.8-10.8)
[2023-02-21 17:48] LABS: PTT 34.4 sec (22.9-36.1); Prothrombin Time 13.7 sec (12.0-14.7)
[2023-02-21 17:52] LABS: Bacteria/HPF 4+ HPF (None Seen); Bilirubin Negative (Negative); Blood, Urine Trace (Negative); CAUTI Indications for Culture Alt mental st,lethar; Clarity Turbid (Clear); Glucose, Urine (Dipstick) Normal (Negative); Ketone, Urine Negative (Negative); Leukocyte 500 Leu/uL (Negative); Nitrite 2+ (Negative); Protein, Urine (Dipstick) 20 mg/dL (Neg-Trace); RBC/HPF 0-3 HPF (0-3); Specific Gravity, Urine 1.026 (1.002-1.036); WBC/HPF Greater than 50 HPF (0-3); pH, Urine 5.5 (5.0-9.0)
[2023-02-21 17:54] LABS: Urine Culture Reflex Yes Yes
[2023-02-21 17:59] LABS: ALT (SGPT) 10 U/L (8-55); AST (SGOT) 9 U/L (5-34); Albumin 3.4 g/dL (3.4-4.8); Alkaline Phosphatase 63 U/L (40-110); Anion Gap 13 mmol/L (10-20); BUN (Urea Nitrogen) 18 mg/dL (9.8-20.1); Bilirubin, Total 0.6 mg/dL (0.2-1.2); Calc. Creatinine Clearance 0 mL/min (70-130); Calcium 8.9 mg/dL (7.8-10.44); Carbon Dioxide 22 mmol/L (23-31); Chloride 108 mmol/L (98-107); Estimated GFR 81; Globulin 2.3 g/dL (2.4-3.5); Glucose 116 mg/dL (83-110); Protein, Total 5.7 g/dL (5.8-8.1); Sodium 139 mmol/L (136-145)
[2023-02-21] MEDS ORDERED: cefTRIAXone (ROCEPHIN) 2 GM VIAL ONE (18:31)
[2023-02-21] MEDS ORDERED: Vancomycin 1 GM/200 ML (FROZEN) BAG ONE (19:13)
[2023-02-21] MEDS ORDERED: Acetaminophen 325 MG TAB PO PRN (19:56)
[2023-02-22] MEDS: Donepezil HCl 10 MG TAB PO SCH ×2 (00:10→20:00)
[2023-02-22 00:16] VITALS: BMI 24.4
[2023-02-22 05:54] LABS: #Basophils 0.1 thou/uL (0.0-0.2); #Monocytes 0.8 thou/uL (0.11-0.59); #Neutrophils 11.5 thou/uL (1.40-6.50); %Basophils 0.4 % (0.0-1.0); %Eosinophils 0.2 % (0.0-10.0); %Lymphocytes 7.5 % (21.0-51.0); %Monocytes 5.8 % (0.0-10.0); %Neutrophils 85.7 % (42.0-75.0); Mean Corpuscular HGB CONC 32.7 g/dL (32.0-36.0); Mean Corpuscular Hemoglobin 28.9 pg (27.0-31.0); Mean Corpuscular Volume 88.4 fl (78.0-98.0); Mean Platelet Volume 10.8 fL (7.4-10.4); Platelet Count 183 10x3/uL (130-400); RBC Distribution Width 14.6 % (11.5-14.5); Red Blood Cell (RBC) Count 3.46 mill/uL (4.20-5.40); White Blood Cell (WBC) Count 13.4 10x3/uL (4.8-10.8)
[2023-02-22 06:14] LABS: Anion Gap 8 mmol/L (10-20); BUN (Urea Nitrogen) 13 mg/dL (9.8-20.1); Calc. Creatinine Clearance 73 mL/min (70-130); Calcium 8.6 mg/dL (7.8-10.44); Carbon Dioxide 23 mmol/L (23-31); Chloride 112 mmol/L (98-107); Estimated GFR 89; Glucose 110 mg/dL (83-110); Potassium 3.9 mmol/L (3.5-5.1); Sodium 139 mmol/L (136-145)
[2023-02-22] MEDS ORDERED: Lisinopril 5 MG TAB PO SCH (09:00)
[2023-02-22] MEDS: Lisinopril 10 MG TAB PO SCH (09:11)
[2023-02-22] MEDS: cefTRIAXone\\ROCEPHIN 2 GM in Sodium Chloride 0.9% 100 ML IVPB SCH (19:55)
[2023-02-22] MEDS ORDERED: Vancomycin HCl 500 MG in Sodium Chloride 0.9% 100 ML IVPB SCH (23:00)
[2023-02-23 06:05] LABS: #Eosinphils 0.1 thou/uL (0.0-0.7); #Monocytes 0.7 thou/uL (0.11-0.59); #Neutrophils 8.5 thou/uL (1.40-6.50); %Basophils 0.4 % (0.0-1.0); %Eosinophils 0.7 % (0.0-10.0); %Lymphocytes 12.1 % (21.0-51.0); %Monocytes 6.4 % (0.0-10.0); Hemoglobin 8.9 g/dL (12.0-16.0); Mean Corpuscular Hemoglobin 28.6 pg (27.0-31.0); Mean Corpuscular Volume 89.4 fl (78.0-98.0); Mean Platelet Volume 10.5 fL (7.4-10.4); Platelet Count 173 10x3/uL (130-400); RBC Distribution Width 14.5 % (11.5-14.5); Red Blood Cell (RBC) Count 3.11 mill/uL (4.20-5.40); White Blood Cell (WBC) Count 10.6 10x3/uL (4.8-10.8)
[2023-02-23] MEDS ORDERED: Vancomycin 1 GM in Premix Bag 1 BAG IVPB SCH (08:00)
[2023-02-23] MEDS: Vancomycin 1 GM in Premix Bag 1 BAG IVPB SCH ×2 (10:14→21:08)
[2023-02-23] MEDS: Lisinopril 10 MG TAB PO SCH (10:16)
[2023-02-23] MEDS: cefTRIAXone\\ROCEPHIN 2 GM in Sodium Chloride 0.9% 100 ML IVPB SCH (21:08)
[2023-02-23] MEDS: Donepezil HCl 10 MG TAB PO SCH (21:08)
[2023-02-24 05:53] LABS: #Eosinphils 0.2 thou/uL (0.0-0.7); #Monocytes 0.7 thou/uL (0.11-0.59); #Neutrophils 7.5 thou/uL (1.40-6.50); %Basophils 0.4 % (0.0-1.0); %Eosinophils 2.3 % (0.0-10.0); %Lymphocytes 14.1 % (21.0-51.0); %Monocytes 6.7 % (0.0-10.0); %Neutrophils 76.1 % (42.0-75.0); Hemoglobin 9.9 g/dL (12.0-16.0); Mean Corpuscular HGB CONC 32.2 g/dL (32.0-36.0); Mean Corpuscular Hemoglobin 28.1 pg (27.0-31.0); Mean Corpuscular Volume 87.2 fl (78.0-98.0); Mean Platelet Volume 10.8 fL (7.4-10.4); Platelet Count 200 10x3/uL (130-400); RBC Distribution Width 14.2 % (11.5-14.5); Red Blood Cell (RBC) Count 3.52 mill/uL (4.20-5.40); White Blood Cell (WBC) Count 9.8 10x3/uL (4.8-10.8)
[2023-02-24 08:42] LABS: Vancomycin, Trough 18.2 ug/mL
[2023-02-24] MEDS ORDERED: Sulfameth/Trimethoprim DS 800-160mg TAB PO SCH (09:00)
[2023-02-24] MEDS: Lisinopril 10 MG TAB PO SCH (09:10)
[2023-02-24] MEDS ORDERED: Sodium Chloride 0.9% 500 ML IV SCH (12:15)
[2023-02-24 15:35] VITALS: BP 91/54; TEMP 97.9
[2023-02-24] MEDS ORDERED: Iopamidol-370 76% 500 ML MDV (1 ML CHARGE) ONE (17:17)
== END 2023-02-24 20:06 | DRG 534 ==
LOC: SUATTDRO 16:21 → ERS 16:21 → SURG A 20:29
PROVIDERS: ADMIT Family Medicine; ATTEND Emergency Medicine
DX: S72.451A Displaced supracondylar fracture without intracondylar extension of lower end of right femur, initial encounter for closed fracture (principal); N39.0 Urinary tract infection, site not specified; G30.9 Alzheimer's disease, unspecified; Z66 Do not resuscitate; R00.0 Tachycardia, unspecified; B96.20 Unspecified Escherichia coli [E. coli] as the cause of diseases classified elsewhere; F02.80 Dementia in other diseases classified elsewhere, unspecified severity, without behavioral disturbance, psychotic disturbance, mood disturbance, and anxiety; E78.5 Hyperlipidemia, unspecified; I10 Essential (primary) hypertension; N32.81 Overactive bladder; W06.XXXA Fall from bed, initial encounter; Z99.3 Dependence on wheelchair; Z79.899 Other long term (current) drug therapy; Z87.820 Personal history of traumatic brain injury
CPT/HCPCS: 36415; 51701; 70450; 71260; 71275; 72125; 74177; 80048; 80053; 80202; 81001; 83605; 85025; 85610; 85730; 87040; 87077; 87086; 87149; 87186; 93005; 93010; 96365; 96367; G0390; J0696; J1650; J3370; J3370-JW; J3490; J7030; Q9967